=== PATIENT | male | born 1950 | race Caucasian/White ===

== ENCOUNTER 2016-09-04 05:41 | Inpatient (IN) ==
[2016-09-04] MEDS ORDERED: *HR* LORazepam 2 MG/ML VIAL IVP ONE ×2 (05:48→06:18)
[2016-09-04] MEDS ORDERED: *HR* LORazepam 2 MG/ML VIAL ONE (05:51)
[2016-09-04] MEDS ORDERED: methylPREDNISolone 125 MG/2 ML VIAL IVP ONE (05:51)
[2016-09-04] MEDS ORDERED: Ipratropium/Albuterol Neb 3 ML IH ONE (05:51)
--- NOTE | 2016-09-04 06:06 | Emergency Department Note ---
Disposition Clinical Impression: Acute exacerbation of chronic obstructive airways disease, Hypoxia Disposition: Still a Patient Condition: Fair [facility] Care Provider[facility] - Forms: ED Satisfaction Letter Time of Disposition: 06:57 SOB HPI - General Chief Complaint: ED Shortness of Breath/Dyspnea Stated Complaint: YURI Time Seen by Provider: 09/04/16 05:58 Source: EMS Limitations: no limitations Nursing Notes Reviewed: Yes Vital Signs Reviewed: Yes - History of Present Illness 65 year old male with HX of COPD and has increased oxygen requirments nightly of 3LNC. Patinet states he had left sided chest pain that woke up him from sleep and is constant. Upon ems arrival he was 77% on RA. Patinet states that he has a long standing history fo smoking and has a nonproductive cough. PAtient denies fevers, nausea, vomiting. Patient is diaphoretic at bedside. Patinet states he is dyspneic and it has been getting worse over the past few days and appaers increasingly more anxious. Patient does not have a recen hospital admission. States that his chest pain is sharp without radiation. noting makes it wore or better. - Related Data Home Medications Medication Instructions Recorded Confirmed Albuterol Neb [AccuNeb] 1 aerosol IH QID PRN 07/29/15 07/29/15 Amlodipine Besylate [Amlodipine 10 mg PO DAILY 07/29/15 07/29/15 Besylate] Budesonide/Formoterol 160/4.5 2 puff IH BID 07/29/15 07/29/15 [Symbicort 160/4.5] Gabapentin [Gralise] 1,200 mg PO TID 07/29/15 07/29/15 GuaiFENesin ER [Mucinex] 600 mg PO BID PRN 07/29/15 07/29/15 Losartan Potassium [Cozaar] 100 mg PO DAILY 07/29/15 07/29/15 Metoprolol [Lopressor] 25 mg PO BID 07/29/15 07/29/15 Omeprazole [PriLOSEC] 20 mg PO DAILY 07/29/15 07/29/15 Oxycodone HCl/Acetaminophen 1 tab PO TID PRN 07/29/15 07/29/15 [Percocet 10-325 mg Tablet] Tiotropium [Spiriva] 18 mcg IH DAILY 07/29/15 07/29/15 Allergies Allergy/AdvReac Type Severity Reaction Status Date / Time No Known Allergies Allergy Verified 11/26/15 01:05 Constitutional: Reports: weakness. Denies: fever, chills, weight change Eyes: Denies: eye pain, eye discharge, vision change ENT ED: Denies: ear pain, throat pain, dental pain, hearing loss, epistaxis, congestion, dysphagia Cardiovascular: Reports: chest pain, palpitations, dyspnea on exertion. Denies : edema, syncope Respiratory: Reports: cough, dyspnea, wheezes. Denies: hemoptysis, stridor Gastrointestinal: Denies: abdominal pain, nausea, vomiting, diarrhea, constipation, hematemesis, melena, hematochezia Genitourinary: Denies: urgency, dysuria, frequency, hematuria Musculoskeletal: Denies: back pain, neck pain, arthralgia, myalgia Integumentary: Denies: rash, abrasion, lesions Neurological: Denies: headache, weakness, numbness, paresthesias, confusion, abnormal gait, vertigo Psychiatric: Denies: anxiety, depression, suicidal thoughts, homicidal thoughts , auditory hallucinations, visual hallucinations Endocrine: Denies: fatigue Hematological/Lymphatic: Denies: easy bleeding, easy bruising Allergic/Immunologic: Denies: facial swelling, urticaria Past Medical History - Past Medical History Medical history: Reports: COPD, hyperlipidemia, hypertension Psychiatric history: Reports: no psych history - Social History Smoking Status: Former smoker Smokeless Tobacco Status: No (quit smoking September 2014) Alcohol use: Reports: rarely Drug use: Reports: none Physical Exam - General Limitations: no limitations General appearance: alert, anxious, in distress - Head Head exam: atraumatic, normocephalic, normal inspection - Eye Eye exam: Present: normal appearance, PERRL, EOMI - Expanded Eye Exam Pupils: Left: reactive - ENT ENT exam: normal exam, normal oropharynx, mucous membranes moist - Expanded ENT Exam External ear exam: Present: normal external inspection Mouth exam: Present: normal external inspection Teeth exam: Present: normal inspection Throat exam: Present: normal inspection - Neck Neck exam: Present: normal inspection, full ROM, trachea midline - Chest Chest inspection: Present: normal inspection, symmetric chest wall rise - Respiratory Respiratory exam: Present: respiratory distress, wheezes - Cardiovascular Cardiovascular exam: Present: normal rhythm, tachycardia, normal heart sounds - Abdominal Exam Abdominal exam: Present: soft, Non-Tender. Absent: tenderness, distention, guarding, rebound, rigidity - Extremities Exam Extremities exam: Present: normal inspection, full ROM. Absent: tenderness, pedal edema - Expanded Upper Extremity Exam Shoulder exam: Present: normal inspection, full ROM Arm exam: Present: normal inspection, full ROM Elbow exam: Present: normal inspection, full ROM Forearm/Wrist exam: Present: normal inspection, full ROM Hand exam: Present: normal inspection, full ROM Vascular exam: Normal: capillary refill, radial pulse - Expanded Lower Extremity Exam Hip/Pelvis exam: Present: normal inspection, full ROM Upper leg exam: Present: normal inspection, full ROM Knee exam: Present: normal inspection, full ROM Lower leg exam: Present: normal inspection, full ROM Ankle exam: Present: normal inspection, full ROM Foot/toe exam: Present: normal inspection, full ROM Neurovascular/Tendon exam: Absent: motor deficit, sensory deficit, tendon deficit - Back Exam Back exam: Present: normal inspection, full ROM. Absent: tenderness - Neurological Exam Neurological exam: Present: alert, oriented X3 - Expanded Neurological Exam Patient oriented to: Present: person, place, time Coma Scale Eye Opening: Spontaneous Coma Scale Motor Response: Obeys Commands Coma Scale Verbal Response: Oriented Coma Scale Total: 15 - Psychiatric Psychiatric exam: Present: normal affect, normal mood - Skin Skin exam: Present: warm, dry, intact, normal color Course Course Narrative: we will place patinet on bipap with breathing treatments and rule out pnuemonia. - Reevaluation(s) Reevaluation #1: signed patient out to Dr. quintero and see. Plan is to r/o PE with CTA chest. If neg study he will still need to be admitted for acute resp failure, hypoxia, COPD excerbation. Time: 06:56 Vital Signs Temperature 97.7 F 09/04/16 05:45 Pulse Rate 135 09/04/16 05:45 Respiratory Rate 30 09/04/16 05:45 Blood Pressure 121/78 09/04/16 05:45 O2 Sat by Pulse Oximetry 85 09/04/16 05:45 Temperature 97.7 F 09/04/16 05:52 Pulse Rate 137 09/04/16 06:50 Respiratory Rate 37 09/04/16 06:50 Blood Pressure 110/78 09/04/16 06:50 O2 Sat by Pulse Oximetry 96 09/04/16 06:50 Oxygen Delivery Oxygen Delivery Bipap Shortness of Breath/Dyspnea - Lab Data Result diagrams: 09/04/16 06:17 Lab Results 09/04/16 09/04/16 Range/Units 06:17 06:17 WBC 7.4 (4.3-11.1) K/mcL RBC 5.85 H (4.19-5.50) M/mcL Hgb 17.7 H (12.9-16.9) g/dL Hct 52.1 H (37.5-50.1) % MCV 89.1 (83.0-100.0) fL MCH 30.3 (28.0-33.3) pg MCHC 34.0 (31.6-35.5) g/dL RDW 14.2 (11.5-14.5) % Plt Count 368 (140-400) K/mcL MPV 9.4 (9.4-12.4) fL Immature Gran % 0.3 (0-4) % Seg Neutrophils % 89.0 % Lymphocytes % 7.1 % Monocytes % 2.9 % Eosinophils % 0.3 % Basophils % 0.4 % Neutrophils # 6.6 (1.6-8.9) K/mcL Lymphocytes # 0.5 L (0.6-4.6) K/mcL Monocytes # 0.2 (0.0-1.3) K/mcL Eosinophils # 0.0 (0.0-0.6) K/mcL Basophils # 0.0 (0.0-0.2) K/mcL PT 9.5 (9.4-12.1) Seconds INR 0.9 APTT 29.7 (26.0-36.0) Seconds - EKG Data EKG attestation: Yes I reviewed and interpreted this EKG. EKG results narrative: sinus tachycardia with rate of 133. NO STEMI. St depression in leads VV4-6, appears to be rate dependent which has changed from 11/26/15. [id number]
[2016-09-04 06:30] LABS: Basophils % 0.4 %; Eosinophils % 0.3 %; Hematocrit 52.1 % (37.5-50.1); Hemoglobin 17.7 g/dL (12.9-16.9); Immature Granulocytes % 0.3 % (0-4); Lymphocytes # 0.5 K/mcL (0.6-4.6); Lymphocytes % 7.1 %; Mean Corpuscular Hemoglobin 30.3 pg (28.0-33.3); Mean Corpuscular Volume 89.1 fL (83.0-100.0); Mean Platelet Volume 9.4 fL (9.4-12.4); Monocytes # 0.2 K/mcL (0.0-1.3); Monocytes % 2.9 %; Neutrophils # 6.6 K/mcL (1.6-8.9); Platelet Count 368 K/mcL (140-400); Red Blood Count 5.85 M/mcL (4.19-5.50); Red Cell Distribution Width 14.2 % (11.5-14.5)
[2016-09-04 06:39] LABS: INR 0.9; Prothrombin Time 9.5 Seconds (9.4-12.1)
[2016-09-04 06:41] LABS: Activated Partial Thrombo Time 29.7 Seconds (26.0-36.0)
[2016-09-04] MEDS: Levofloxacin 750 MG/150 ML 750 MG/150 ML BAG IVPB SCH ×2 (07:01→13:25)
[2016-09-04] MEDS ORDERED: *HR* FentaNYL (PF) 100 MCG/2 ML VIAL IV ONE (07:19)
[2016-09-04 07:40] LABS: Alanine Aminotransferase 17 Units/L (0-55); Albumin 4.4 g/dL (3.5-5.0); Albumin/Globulin Ratio 1.1 (1.1-2.2); Alkaline Phosphatase 98 Units/L (38-126); Aspartate Amino Transferase 34 Units/L (5-34); BUN/Creatinine Ratio 9 (6-26); Bilirubin,Direct 0.4 mg/dL (0.0-0.5); Bilirubin,Indirect 0.6 mg/dL (0.0-1.2); Blood Urea Nitrogen 9 mg/dL (8-26); Carbon Dioxide 20 mEq/L (19-29); Chloride 91 mEq/L (98-109); Glucose 52 mg/dL (70-99); Lipase 9 Units/L (8-78); Osmolality,Calculated 266 (280-300); Potassium 4.2 mEq/L (3.5-4.5); Sodium 130 mEq/L (136-145); Total Protein 8.4 g/dL (6.0-8.3); eGFR For African Americans > 60 (> 60); eGFR For Non-African Americans > 60 (> 60)
--- NOTE | 2016-09-04 07:44 | Emergency Department Note ---
Disposition Clinical Impression: Acute exacerbation of chronic obstructive airways disease, Hypoxia, Cavitary lesion of lung Pneumonia Qualifiers: Pneumonia type: due to unspecified organism Laterality: right Lung location: unspecified part of lung Qualified Code(s): J18.9 - Pneumonia, unspecified organism Disposition: Admitted As Inpatient Condition: Fair [facility]Primary Care Provider[facility] - Forms: ED Satisfaction Letter SOB HPI - General Chief Complaint: ED Shortness of Breath/Dyspnea Stated Complaint: YURI Source: EMS Limitations: no limitations Nursing Notes Reviewed: Yes Vital Signs Reviewed: Yes - History of Present Illness Patient seen and examined. This is a continuation of prior providers care. Please refer to the prior providers documentation for complete history and physical. - Related Data Home Medications Medication Instructions Recorded Confirmed Albuterol Neb [AccuNeb] 1 aerosol IH QID PRN 07/29/15 09/04/16 Amlodipine Besylate [Amlodipine 10 mg PO DAILY 07/29/15 09/04/16 Besylate] Budesonide/Formoterol 160/4.5 2 puff IH BID 07/29/15 09/04/16 [Symbicort 160/4.5] Gabapentin [Gralise] 1,200 mg PO TID 07/29/15 09/04/16 GuaiFENesin ER [Mucinex] 600 mg PO BID PRN 07/29/15 09/04/16 Losartan Potassium [Cozaar] 100 mg PO DAILY 07/29/15 09/04/16 Omeprazole [PriLOSEC] 20 mg PO DAILY 07/29/15 09/04/16 Oxycodone HCl/Acetaminophen 1 tab PO TID PRN 07/29/15 09/04/16 [Percocet 10-325 mg Tablet] Tiotropium [Spiriva] 1 cap IH DAILY 07/29/15 09/04/16 Albuterol Sulfate [Albuterol 2 puff IH Q6HR PRN 09/04/16 09/04/16 Inhaler] Roflumilast [Daliresp] 500 mcg PO DAILY 09/04/16 09/04/16 Tamsulosin [Flomax] 0.4 mg PO DAILY 09/04/16 09/04/16 Allergies Allergy/AdvReac Type Severity Reaction Status Date / Time No Known Allergies Allergy Verified 11/26/15 01:05 Constitutional: Reports: weakness. Denies: fever, chills, weight change Eyes: Denies: eye pain, eye discharge, vision change ENT ED: Denies: ear pain, throat pain, dental pain, hearing loss, epistaxis, congestion, dysphagia Cardiovascular: Reports: chest pain, palpitations, dyspnea on exertion. Denies : edema, syncope Respiratory: Reports: cough, dyspnea, wheezes. Denies: hemoptysis, stridor Gastrointestinal: Denies: abdominal pain, nausea, vomiting, diarrhea, constipation, hematemesis, melena, hematochezia Genitourinary: Denies: urgency, dysuria, frequency, hematuria Musculoskeletal: Denies: back pain, neck pain, arthralgia, myalgia Integumentary: Denies: rash, abrasion, lesions Neurological: Denies: headache, weakness, numbness, paresthesias, confusion, abnormal gait, vertigo Psychiatric: Denies: anxiety, depression, suicidal thoughts, homicidal thoughts , auditory hallucinations, visual hallucinations Endocrine: Denies: fatigue Hematological/Lymphatic: Denies: easy bleeding, easy bruising Allergic/Immunologic: Denies: facial swelling, urticaria Past Medical History - Past Medical History Medical history: Reports: COPD, hyperlipidemia, hypertension Psychiatric history: Reports: no psych history - Social History Smoking Status: Former smoker Smokeless Tobacco Status: No (quit smoking September 2014) Alcohol use: Reports: rarely Drug use: Reports: none Physical Exam - General Limitations: no limitations General appearance: alert, in no apparent distress, anxious - Head Head exam: normocephalic - Eye Eye exam: Present: normal appearance, EOMI - ENT ENT exam: normal exam, mucous membranes moist - Neck Neck exam: Present: normal inspection, trachea midline - Chest Chest inspection: Present: normal inspection, symmetric chest wall rise - Respiratory Respiratory exam: Present: wheezes, accessory muscle use, prolonged expiratory phase - Cardiovascular Cardiovascular exam: Present: normal rhythm, tachycardia - Abdominal Exam Abdominal exam: Present: soft, Non-Tender - Extremities Exam Extremities exam: Present: normal inspection. Absent: pedal edema - Neurological Exam Neurological exam: Present: alert, oriented X3 - Skin Skin exam: Present: warm, dry, intact, normal color Course Course Narrative: Patient seen and examined upon arrival. This a continuation of parvovirus care. Please see their documentation for complete history and physical. Patient is 65-year-old male with stage IV COPD presents for evaluation of shortness of breath dyspnea and increasing nausea vomiting overnight. It sounds productive cough and no fevers. Patient states that he was admitted in [facility] for [facility]. - Reevaluation(s) Reevaluation #1: Seen and examined. Patient confirms the history provided. Reports breathing has drastically improved with the addition of Positive pressure. Awaiting CTA. Time: 07:50 Vital Signs Temperature 97.7 F 09/04/16 05:45 Pulse Rate 135 09/04/16 05:45 Respiratory Rate 30 09/04/16 05:45 Blood Pressure 121/78 09/04/16 05:45 O2 Sat by Pulse Oximetry 85 09/04/16 05:45 Temperature 97.7 F 09/04/16 05:52 Pulse Rate 102 09/04/16 09:26 Respiratory Rate 20 09/04/16 09:26 Blood Pressure 129/76 09/04/16 09:26 O2 Sat by Pulse Oximetry 94 09/04/16 09:26 Oxygen Delivery Oxygen Delivery Venti Mask Shortness of Breath/Dyspnea - [facility] Narrative Medical decision making narrative: 65-year-old male presents for evaluation of shortness of breath. Patient had increasing shortness of breath overnight. Patient is typically on 3 L nasal cannula. Patient is found to be hypoxic upon arrival. Patient was also found to be tachycardic into kidney. Patient was placed on BiPAP which significantly improved his respiratory status. Patient also received IV fluid hydrations as his heart rate did respond. Patient's chest x-ray was suggestive of pneumonia. Since the patient was persistently tachycardic and hypoxic he received a CTA which shows a cavitary lesion in the right apex. Patient denies any history of TB. Patient denies any risk factors for TB. No night sweats. No immunocompromised state. No times of prolonged incarceration. Patient received antibiotics in the emergency department. Patient will be admitted to the hospital service for further evaluation and monitoring. - Lab Data Lab results reviewed: Yes I reviewed the patient's lab results. Result diagrams: 09/04/16 06:17 09/04/16 06:17 Lab Results 09/04/16 09/04/16 09/04/16 Range/Units 06:17 06:17 06:17 WBC 7.4 (4.3-11.1) K/mcL RBC 5.85 H (4.19-5.50) M/mcL Hgb 17.7 H (12.9-16.9) g/dL Hct 52.1 H (37.5-50.1) % MCV 89.1 (83.0-100.0) fL MCH 30.3 (28.0-33.3) pg MCHC 34.0 (31.6-35.5) g/dL RDW 14.2 (11.5-14.5) % Plt Count 368 (140-400) K/mcL MPV 9.4 (9.4-12.4) fL Immature Gran % 0.3 (0-4) % Seg Neutrophils % 89.0 % Lymphocytes % 7.1 % Monocytes % 2.9 % Eosinophils % 0.3 % Basophils % 0.4 % Neutrophils # 6.6 (1.6-8.9) K/mcL Lymphocytes # 0.5 L (0.6-4.6) K/mcL Monocytes # 0.2 (0.0-1.3) K/mcL Eosinophils # 0.0 (0.0-0.6) K/mcL Basophils # 0.0 (0.0-0.2) K/mcL PT 9.5 (9.4-12.1) Seconds INR 0.9 APTT 29.7 (26.0-36.0) Seconds ABG pH (7.32-7.45) pH Units ABG pCO2 (35-45) mmHg ABG pO2 (85-104) mmHg ABG HCO3 (21-27) mEQ/L ABG Total CO2 (20-26) mEq/L ABG O2 Saturation (95-98) % ABG Base Excess (-2.0 to 3.0) mEq/L Blood Gas Modality Inspired O2 % Sodium (136-145) mEq/L Potassium (3.5-4.5) mEq/L Chloride (98-109) mEq/L Carbon Dioxide (19-29) mEq/L BUN (8-26) mg/dL Creatinine (0.72-1.25) mg/dL Est GFR ( Amer) (> 60) Est GFR (Non-Af Amer) (> 60) BUN/Creatinine Ratio (6-26) Glucose (70-99) mg/dL Calculated Osmolality (280-300) Calcium (8.6-10.8) mg/dL Total Bilirubin (0.2-1.2) mg/dL Direct Bilirubin (0.0-0.5) mg/dL Indirect Bilirubin (0.0-1.2) mg/dL AST (5-34) Units/L ALT (0-55) Units/L Alkaline Phosphatase (38-126) Units/L Troponin I (0-0.03) ng/mL B-Natriuretic Peptide 45 (0-100) pg/mL Serum Total Protein (6.0-8.3) g/dL Albumin (3.5-5.0) g/dL Globulin (2.4-3.5) g/dL Albumin/Globulin Ratio (1.1-2.2) Lipase (8-78) Units/L 09/04/16 09/04/16 09/04/16 Range/Units 06:17 06:17 07:58 WBC (4.3-11.1) K/mcL RBC (4.19-5.50) M/mcL Hgb (12.9-16.9) g/dL Hct (37.5-50.1) % MCV (83.0-100.0) fL MCH (28.0-33.3) pg MCHC (31.6-35.5) g/dL RDW (11.5-14.5) % Plt Count (140-400) K/mcL MPV (9.4-12.4) fL Immature Gran % (0-4) % Seg Neutrophils % % Lymphocytes % % Monocytes % % Eosinophils % % Basophils % % Neutrophils # (1.6-8.9) K/mcL Lymphocytes # (0.6-4.6) K/mcL Monocytes # (0.0-1.3) K/mcL Eosinophils # (0.0-0.6) K/mcL Basophils # (0.0-0.2) K/mcL PT (9.4-12.1) Seconds INR APTT (26.0-36.0) Seconds ABG pH 7.38 (7.32-7.45) pH Units ABG pCO2 37 (35-45) mmHg ABG pO2 85 (85-104) mmHg ABG HCO3 21.9 (21-27) mEQ/L ABG Total CO2 23.0 (20-26) mEq/L ABG O2 Saturation 96 (95-98) % ABG Base Excess -2.7 L (-2.0 to 3.0) mEq/L Blood Gas Modality BIPAP Inspired O2 60 % Sodium 130 L (136-145) mEq/L Potassium 4.2 (3.5-4.5) mEq/L Chloride 91 L (98-109) mEq/L Carbon Dioxide 20 (19-29) mEq/L BUN 9 (8-26) mg/dL Creatinine 0.95 (0.72-1.25) mg/dL Est GFR ( Amer) > 60 (> 60) Est GFR (Non-Af Amer) > 60 (> 60) BUN/Creatinine Ratio 9 (6-26) Glucose 52 L (70-99) mg/dL Calculated Osmolality 266 L (280-300) Calcium 10.0 (8.6-10.8) mg/dL Total Bilirubin 1.0 (0.2-1.2) mg/dL Direct Bilirubin 0.4 (0.0-0.5) mg/dL Indirect Bilirubin 0.6 (0.0-1.2) mg/dL AST 34 (5-34) Units/L ALT 17 (0-55) Units/L Alkaline Phosphatase 98 (38-126) Units/L Troponin I 0.01 (0-0.03) ng/mL B-Natriuretic Peptide (0-100) pg/mL Serum Total Protein 8.4 H (6.0-8.3) g/dL Albumin 4.4 (3.5-5.0) g/dL Globulin 4.0 H (2.4-3.5) g/dL Albumin/Globulin Ratio 1.1 (1.1-2.2) Lipase 9 (8-78) Units/L - Radiology Data Radiology results reviewed: Yes I reviewed the patient's radiology results. Chest X-Ray 09/04/16 05:48 IMPRESSION: Asymmetric airspace disease on the right with right-sided pleural effusion, suspicious for pneumonia D/ / Phill Elder MD / Phill Elder MD Interpreting Provider: Phill Elder MD Chest CTA 09/04/16 06:52 IMPRESSION: 1. No acute pulmonary artery embolism. 2. Emphysema with 10.6 x 8.8 cm cavitary lesion within the right apex concerning for postinfectious origin such as tuberculosis. 3. Multifocal consolidation right upper lobe, right middle lobe and right lower lobe with small fusion consistent with multifocal infection. 4. Indeterminate cavitary nodules within the lingula and left lower lobe. Attention on follow-up CT imaging recommended. D/ / Wilber Duron MD / Wilber Duron MD Interpreting Provider: Wilber Duron MD - EKG Data EKG attestation: Yes I reviewed and interpreted this EKG. EKG shows normal: Reports: sinus rhythm Rate: Reports: tachycardia Rhythm: Reports: NSR [place]/QRS: Reports: normal ( ) When compared to previous EKG there are: no significant changes Interpretation: Reports: no acute changes, nonspecific ST-T wave changes S.B.A.R. - S.B.A.RJavier Situation: Demographics, MOA Background: Presenting Complaint, Relevant PMH, Meds, & Allergies Assessment: Vital Signs, Course and respsone to treatment, Patient/Family Expectation, Pertinant Lab Results Recommendation: Barrier(s) to disposition, Recommendation based on pending studies, treatments, or consults S.B.A.RJavier Report Given to: Dr. Liz Avila Repor Time: 09:12 Attestation Statement - Attestation Attestation: I examined this patient and my medical decision-making was reviewed with the COMMERCIAL ENERGY AUDITOR/PA/Advanced Practice Nurse/Resident Physician. I agree with the documented findings, disposition and treatment plan as described except to the extent set forth below. Patient signed out pending reevaluation and admission. Patient is tolerating nasal cannula at this time. CT shows right-sided infiltrate. Possible cavitary lesion that could be consistent with TB. She questioned and has no risk factors for TB. IV antibotics given and admitted to medicine. 30 Minutes of critical care exclusive of separately billable procedures.
[2016-09-04] MEDS ORDERED: 0.9 % Sodium Chloride 1,000 ML IVC ONE ×2 (07:59→09:21)
[2016-09-04 08:07] LABS: ABG Base Excess -2.7 mEq/L (-2.0 to 3.0); ABG HCO3 21.9 mEQ/L (21-27); ABG Oxygen Saturation 96 % (95-98); ABG PCO2 37 mmHg (35-45); ABG PH 7.38 pH Units (7.32-7.45); ABG PO2 85 mmHg (85-104)
[2016-09-04 08:08] LABS: Blood Gas FiO2 60 %
[2016-09-04] MEDS ORDERED: Naloxone 0.4 MG/ML INJ IVP PRN (10:01)
[2016-09-04] MEDS ORDERED: Acetaminophen 325 MG TABLET PO PRN (10:01)
[2016-09-04] MEDS ORDERED: *HR* FentaNYL (PF) 100 MCG/2 ML VIAL IVP ONE (10:11)
--- NOTE | 2016-09-04 10:59 | Internal Med History&Physical ---
Date of Encounter: 09/04/16 Time of Encounter: 10:57 Assessment and Plan (1) Acute and chronic respiratory failure with hypoxia Current visit: Yes Status: Acute presented with worsening SOB that started morning of admission. Was hypoxic in ED with saturations in 70s. Initially required BiPAP. CTA chest with multifocal infection, no pulmonary embolism. Saturations and breathing improved with BiPAP , weaned to non-rebreather. Treat underlying cause. Wean O2 as able. ABGs pending (2) Acute exacerbation of chronic obstructive airways disease Current visit: Yes Status: Acute per hx. Wears O2 at HS. Now with worsening SOB, wheezing. Cont IV steroids, ATB , nebulizers. (3) Pneumonia Current visit: Yes Status: Acute symptomatic with acute SOB and cough. Chest CTA with right upper lobe, right middle lobe and right lower lobe consolidation concerning for multifocal infection. Cont Levaquin stared in ED. ID consulted. Sputum cx, urinary antigens pending Qualifiers: Pneumonia type: due to unspecified organism Laterality: right Lung location: lower lobe of lung Qualified Code(s): J18.1 - Lobar pneumonia, unspecified organism (4) Cavitary lesion of lung Current visit: Yes Status: Acute Chest CTA with right apex cavitary lesion concerning for possible tuberculosis and indeterminate cavitary nodules within lingula and left lower lobe. Pt reports following with [facility] for lesion. No previous hx TB, no night sweets, fever, weight loss. ID consulted for further recommendations (5) Hypertension Current visit: Yes Status: Acute per hx. Was initially hypotensive in ED. BP responded to IV fluids. Monitor BP and resume home BP medications as BP allows Qualifiers: Hypertension type: essential hypertension Qualified Code(s): I10 - Essential (primary) hypertension (6) Hypoglycemia Current visit: Yes Status: Acute blood sugar 54 on arrival. No hx diabetes. Asymptomatic. Give PO, monitor blood sugar (7) DVT prophylaxis Current visit: Yes Status: Acute [facility] Internal Medicine - H&P: HPI Chief complaint: Shortness of breath Admitted From: Home Plans for Post Hospital Care: Home History of present illness: Mr. Teran is a 65 year old male with PMH COPD, HTN and BPH who presented to [facility] on 09/04/2016 with complaints of shortness of breath. He was found to be hypoxic and was placed on BiPAP in ED. He was admitted for IV ATB and ID consultation. Information obtained form chart review and patient report. Patient says he woke at 0200 on morning of admission and was acutely SOB. Says "when I get like this it just comes on real quick". Says he mowed his yard for 4 hours yesterday and he thinks that set it off. Has been treated for PNA and COPD exacerbation this year at [facility]. On my exam he is still c/ o SOB but says better from when he first came to ER. Breathing tx's and oxygen has helped, activity worsens. No chest pain. Reports productive cough at times. No recent weight loss, fever, chills or night sweats. Past Med Surg Social Fam HX - Past Medical History Medical history: COPD, hyperlipidemia Psychiatric history: no psych history - Past Surgical History Surgical History: no surgical history - Social History Smoking Status: Former smoker Smokeless Tobacco Status: No (quit smoking September 2014) Alcohol use: rarely Drug use: none - Additional Family History Additional family history: reviewed and noncontributory per patient Internal Medicine - H&P: Meds Albuterol Neb [AccuNeb] 1 aerosol IH QID PRN 07/29/15 [History] Amlodipine Besylate [Amlodipine Besylate] 10 mg PO DAILY 07/29/15 [History] Budesonide/Formoterol 160/4.5 [Symbicort 160/4.5] 2 puff IH BID 07/29/15 [ History] Gabapentin [Gralise] 1,200 mg PO TID 07/29/15 [History] GuaiFENesin ER [Mucinex] 600 mg PO BID PRN 07/29/15 [History] Losartan Potassium [Cozaar] 100 mg PO DAILY 07/29/15 [History] Omeprazole [PriLOSEC] 20 mg PO DAILY 07/29/15 [History] Oxycodone HCl/Acetaminophen [Percocet 10-325 mg Tablet] 1 tab PO TID PRN [History] Tiotropium [Spiriva] 1 cap IH DAILY 07/29/15 [History] Albuterol Sulfate [Albuterol Inhaler] 2 puff IH Q6HR PRN 09/04/16 [History] Roflumilast [Daliresp] 500 mcg PO DAILY 09/04/16 [History] Tamsulosin [Flomax] 0.4 mg PO DAILY 09/04/16 [History] Allergies No Known Allergies Allergy (Verified 11/26/15 01:05) All Systems PM: A 10-system review of systems was performed and is negative for pertinent findings except as documented above in the HPI. - Constitutional Constitutional: no chills, no fever(s), no night sweats - EENT Eyes: no change in vision, no discharge, no pain, no photophobia Nose, mouth and throat: no dysphagia, no nasal discharge, no neck pain, no sore throat - Cardiovascular Cardiovascular ROS IM: dyspnea, dyspnea on exertion, orthopnea, no chest pain, no diaphoresis, no lightheadedness, no palpitations, no syncope - Respiratory Respiratory: cough, dyspnea, wheezing, no excessive phlegm production - Gastrointestinal Gastrointestinal: no abdominal pain, no diarrhea, no hematemesis, no hematochezia, no melena, no nausea, no vomiting - Musculoskeletal Musculoskeletal ROS IM: no numbness, no tingling - Integumentary Integumentary IM: no rash, no unusual bruising - Neurological Neurological ROS: no confusion, no convulsions, no focal weakness, no numbness, no tingling, no tremor(s) - Psychiatric Psychiatric: no abnormal sleep pattern, no confusion, no difficulty concentrating - Endocrine Endocrine IM: no fatigue - Hematologic/Lymphatic Hematologic/Lymphatic: no easy bruising - Constitutional Vitals: Temp Pulse Resp BP Pulse Ox 97.7 F 98 22 127/75 92 09/04/16 05:52 09/04/16 10:41 09/04/16 10:49 09/04/16 10:49 09/04/16 10:41 General appearance: Present: cooperative, mild distress, A&O X 3 - Head Head exam: Present: atraumatic, normocephalic - Eye Eye exam: Present: PERRL, conjuntiva pink, sclera anicteric Pupils: Present: PERRL - Neck Neck exam general surgery: Present: supple, trachea midline. Absent: lymphadenopathy - Respiratory Respiratory exam: Present: accessory muscle use, decreased breath sounds, CTAB, wheezes. Absent: rales, rhonchi - Cardiovascular Cardiovascular exam: Present: irregular rhythm, RRR, +S2. Absent: diastolic murmur, gallop, rubs, systolic murmur - GI/Abdominal GI/Abdominal exam: Present: normal bowel sounds, soft, no peritoneal signs. Absent: distended, tenderness - Extremities Exam Extremities exam: Present: warm, radial pulses palpable and symetrical. Absent : calf tenderness, cyanotic, pedal edema - Neurological Exam Neurological exam: Present: CN II-XII intact, oriented X3, no focal deficits. Absent: pronater drift, facial droop, speech deficit - Skin Skin exam: Present: dry, intact Internal Med - H&P Results - Labs CBC & Chem 7: 09/04/16 06:17 09/04/16 06:17 - Impressions Impressions Chest X-Ray 09/04/16 05:48 IMPRESSION: Asymmetric airspace disease on the right with right-sided pleural effusion, suspicious for pneumonia D/ / Phill Elder MD / Phill Elder MD Interpreting Provider: Phill Elder MD Chest CTA 09/04/16 06:52 IMPRESSION: 1. No acute pulmonary artery embolism. 2. Emphysema with 10.6 x 8.8 cm cavitary lesion within the right apex concerning for postinfectious origin such as tuberculosis. 3. Multifocal consolidation right upper lobe, right middle lobe and right lower lobe with small effusion consistent with multifocal infection. 4. Indeterminate cavitary nodules within the lingula and left lower lobe. Attention on follow-up CT imaging recommended. D/ / 09/04/2016 09:09:17 Wilber Duron MD / ana Interpreting Provider: Wilber Duron MD
[2016-09-04] MEDS ORDERED: D5% in Water 1,000 ML IVC PRN (11:47)
[2016-09-04] MEDS ORDERED: Dextrose Gel 15 GM PO PRN ×2 (11:47)
[2016-09-04] MEDS ORDERED: *HR* Dextrose 50 % in Water (Syg) 50 ML SYRINGE IVP PRN (11:47)
[2016-09-04] MEDS ORDERED: Ipratropium/Albuterol Neb 3 ML IH PRN (13:06)
[2016-09-04] MEDS: NON-FORMULARY MEDICATION 1 EACH EACH (Roflumilast [Daliresp] 500 MCG) PO SCH (13:41)
[2016-09-04] MEDS: Ipratropium/Albuterol Neb 3 ML IH SCH ×3 (13:46→19:51)
[2016-09-04] MEDS: Gabapentin 400 MG CAPSULE PO SCH ×3 (13:49→20:59)
--- NOTE | 2016-09-04 14:08 | Infectious Disease Consult ---
Date of Encounter: 09/04/16 Time of Encounter: 14:06 Assessment and Plan (1) Sepsis Status: Acute Assessment and plan: Severe sepsis: The patient had three SIRS criteria plus hypotension that responded to IV fluids. qSOFA score 2. Lactic acid normal. IV fluid bolus administered per the ED. Likely secondary to PNA. Blood cultures drawn in the ED are pending x 2 sets. Qualifiers: Sepsis type: sepsis due to unspecified organism Qualified Code(s): A41.9 - Sepsis, unspecified organism (2) Pneumonia Status: Acute Assessment and plan: Community-acquired PNA Location: Right lung. CT of the chest completed in the ED showed consolidation and ground-glass opacities in the right upper and right middle lobe and extensively throughout the right lower lobe with more confluent airspace disease and air bronchograms consistent with multifocal infection. Causative organism unclear. Send sputum for culture. Check S. pneumo and Legionella UAT. Discontinue Levaquin. Start Zosyn 3.375 grams IV Q8H. This will provide adequate coverage for both CAP and in the even the cavitary lung lesion is caused by a bacterial infection. Start Vancomycin IV. Pharmacy to dose. Goal trough approximately 15. Duration of treatment depends on the clinical picture. Monitor renal function and for drug toxicity and dose-adjust antibiotics. Qualifiers: Pneumonia type: due to unspecified organism Laterality: right Lung location: lower lobe of lung Qualified Code(s): J18.1 - Lobar pneumonia, unspecified organism (3) Cavitary lesion of lung Status: Acute Assessment and plan: Location: Right lung apex. CT of the chest shows 10.6cm x 8.8cm cavitary lesion within the right apex concerning for postinfectious origin such as tuberculosis. Etiology not entirely clear. We need to consider infectious (bacterial, TB, NTM , fungal) vs. noninfectious etiologies (malignancy, autoimmune, etc.) CTA of the chest ruled out a PE as a potential cause. Place PPD for TST. Read in [address] the patient in negative pressure isolation until TB has been ruled out. Send sputum for culture x 1 and AFB x 3. Consider sending fungal serologies. Recommend pulmonology consult as well. Request records from the [place]. I have placed a phone call to the nurse practitioner that the patient sees at the [facility]. Awaiting a return call at this time. Antibiotic recommendations as above. Discontinue Levaquin as its use in the TB patient can lead to resistance. (4) Acute exacerbation of chronic obstructive airways disease Status: Acute Assessment and plan: Likely secondary to PNA. Continue supportive care with O2, nebulizers, and steroids. Continue antibiotics as above. Further management per the primary team. (5) Hypoxia Status: Acute Assessment and plan: Secondary to PNA and AECOPD. Continue O2 to keep SpO2 >89%. Management per the primary team. (6) Acute and chronic respiratory failure with hypoxia Status: Acute (7) Pulmonary nodule Status: Acute Assessment and plan: CTA of the chest shows scattered bilateral calcified pulmonary nodules consistent with remote granulomatous disease. Etiology unclear, but the patient states he has been following with the [facility] for this and was told it was "stable." Unable to tell me the cause of the pulmonary nodule. Request records from the [facility]. Recommend pulmonology consult. Infectious Disease HPI - Data of Consult Patient: new to practice Consult date: 09/04/16 Requesting Physician: Whitney Hill MD Primary Care Provider: [facility] - Consult Narrative Reason for consult: Cavitary lung lesion History of present illness: Mr. Teran is a 65 year old male with a past medical history of COPD, hyperlipidemia, and hypertension. The patient was managed the hospital September 04 for acute exacerbation of COPD and hypoxia. We are consulted September 04 for further evaluation and treatment recommendations regarding a cavitary lung lesion. The patient's 65-year-old male with past medical history as stated above. The patient typically follows with [facility] for his healthcare. He states that approximately 2:00 this morning he was awoke from sleep due to severe shortness of breath and cough and chest pain. Upon arrival to ER, the patient is afebrile but he was tachycardic. His white blood cell count is normal. Chest x-ray showed asymmetric airspace disease on the right with a right pleural effusion suspicious for pneumonia. A CTA of the chest was completed that she was negative for PE. It is showing emphysema with a 10.6 x 8.8 cm cavitary lesion in the right apex as well as findings consistent with multifocal pneumonia and cavitary nodules in the lingula and left lower lobe. The patient was started on empiric Levaquin. We've asked to evaluate and make further recommendations. During my exam today, the patient endorses a history as stated below. He states he follows with [facility] and typically sees a nurse practitioner over there has been following with pulmonary nodules. He states he is also seen a international first officer who states that his pulmonary nodules are "stable. " He denies any fevers or chills or rigors. He denies any headache, but does report chronic neck pain. He denies any recent congestion, earache, or sore throat. He reports that the pain in his chest as constant and worse with cough or deep inspiration. He reports a cough productive of thick sputum. He denies any hemoptysis. He denies any night sweats or weight loss. He denies any dizziness or weakness. He states that the shortness of breath and chest pain or sudden onset this morning. He reports dyspnea at rest and worse with exertion. He denies any nausea, vomiting, diarrhea, or constipation. He states his appetite has been okay. He complains of chronic back pain, but denies anything new. He denies pain in any of his extremities. The patient's was previously in the [employer] and served in [employer] He then went to [place]. 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 He denies any recent travel outside the [facility]. He is a former smoker. He denies any illicit drug use and states that he occasionally drinks a beer. CC: Whitney Hill MD Past Med Surg Social Fam HX - Past Medical History Attestation: Yes The following information was validated with the patient. Source: patient, old records reviewed, nursing notes reviewed Medical history: COPD, hyperlipidemia Psychiatric history: no psych history - Past Surgical History Surgical History: orthopedic, other (Right hip IM nailing, right hip total arthroplasty) - Social History Smoking Status: Former smoker Packs per day: 1 Smokeless Tobacco Status: No (quit smoking September 2014) Alcohol use: rarely Drug use: none Occupational status: retired Current living situation: Home, With Family Activity Level: Independent ambulation Recent Out of Country Travel Within the Last 8 Weeks: No Exposure or Possible Exposure to Illness During Travel: No Infectious Disease-CN:Meds Albuterol Neb [AccuNeb] 1 aerosol IH QID PRN 07/29/15 [History] Amlodipine Besylate [Amlodipine Besylate] 10 mg PO DAILY 07/29/15 [History] Budesonide/Formoterol 160/4.5 [Symbicort 160/4.5] 2 puff IH BID 07/29/15 [ History] Gabapentin [Gralise] 1,200 mg PO TID 07/29/15 [History] GuaiFENesin ER [Mucinex] 600 mg PO BID PRN 07/29/15 [History] Losartan Potassium [Cozaar] 100 mg PO DAILY 07/29/15 [History] Omeprazole [PriLOSEC] 20 mg PO DAILY 07/29/15 [History] Oxycodone HCl/Acetaminophen [Percocet 10-325 mg Tablet] 1 tab PO TID PRN [History] Tiotropium [Spiriva] 1 cap IH DAILY 07/29/15 [History] Albuterol Sulfate [Albuterol Inhaler] 2 puff IH Q6HR PRN 09/04/16 [History] Roflumilast [Daliresp] 500 mcg PO DAILY 09/04/16 [History] Tamsulosin [Flomax] 0.4 mg PO DAILY 09/04/16 [History] Allergies No Known Allergies Allergy (Verified 11/26/15 01:05) All systems: reviewed and no additional remarkable complaints except as stated Exam - Constitutional Vitals: Temp Pulse Resp BP Pulse Ox 97.7 F 108 20 148/85 93 09/04/16 11:02 09/04/16 13:30 09/04/16 13:30 09/04/16 13:30 09/04/16 13:30 General appearance: cooperative, no acute distress, thin - Head Head exam: Present: atraumatic, normal inspection, normocephalic - Eye Eye exam: Present: EOMI, normal appearance, PERRL Pupils: Present: normal accommodation - ENT ENT exam: Present: mucous membranes moist - Neck Neck exam: Present: normal inspection - Respiratory Respiratory exam: Present: decreased breath sounds (POLY, LLL), rales (RML, RLL) , respiratory distress (mild), tachypnea. Absent: rhonchi, wheezes - Cardiovascular Cardiovascular exam: Present: +S1, +S2, tachycardia. Absent: irregular rhythm - GI/Abdominal GI/Abdominal exam: Present: normal bowel sounds, soft. Absent: distended, tenderness - Extremities Exam Extremities exam: Present: normal inspection. Absent: joint swelling, pedal edema, tenderness - Neurological Exam Neurological exam: Present: alert, oriented X3, no focal deficits - Psychiatric Psychiatric exam: Present: normal affect, normal mood - Skin Skin exam: Present: dry, intact, normal color, warm Infectious Disease CN: Results - Labs CBC & Chem 7: 09/05/16 04:43 09/05/16 04:43 Consult Discharge Plan - Plan [facility]: [facility]Primary Care Provider] -
[2016-09-04 14:18] LABS: Bilirubin,Urine Negative (Negative); Blood,Urine Negative (Negative); Clarity,Urine Clear (Clear); Color,Urine Yellow (Yellow); Glucose,Urine (UA) Normal (Normal); Ketones,Urine 15 mg/dL (Negative); Leukocyte Esterase,Urine Negative (Negative); Nitrite,Urine Negative (Negative); Protein,Urine Negative (Neg-Trace); Urobilinogen,Urine Normal (Normal)
[2016-09-04] MEDS ORDERED: Tuberculin Skin Test (PPD) 5 TUB/0.1 ML VIAL ID ONE (14:40)
[2016-09-04] MEDS ORDERED: Vancomycin 750 MG in D5% in Water 250 ML IVPB SCH (15:00)
[2016-09-04] MEDS: Piperacillin/Tazobactam 3.375 GM in D5% in Water (Mini-Bag+) 100 ML IVPB SCH (16:26)
[2016-09-04] MEDS: methylPREDNISolone 125 MG/2 ML VIAL IVP SCH (16:27)
[2016-09-04] MEDS: Vancomycin 750 MG in D5% in Water 250 ML IVPB SCH (16:28)
--- NOTE | 2016-09-04 18:40 | Electrocardiograph Report ---
[address] [place], [place] [address] Test Date: 2016-09-04 Pat Name: Ravin Teran Department: 102 Room: 12 Gender: M Excel Analyst: [facility] : 1950 Requested By: Serene Harrell Order Number: [id number] Reading MD: Freddie Leung MD Measurements Intervals [place] Rate: 133 P: 80 PA: 137 QRS: 77 QRSD: 73 T: 70 QT: 270 QTc: 348 Interpretive Statements SINUS TACHYCARDIA Electronically Signed On 09-04-2016 18:38:46 EDT by Freddie Leung MD
[2016-09-04] MEDS: Budesonide/Formoterol 160/4.5 MDI IH SCH (19:51)
[2016-09-04] MEDS: *HR* OxyCODONE/APAP 10/325 TABLET PO PRN (20:59)
[2016-09-04 21:54] LABS: Adenovirus Not Detected (Not Detect); Bordetella Pertussis Not Detected (Not Detect); Chlamydophila pneumoniae Not Detected (Not Detect); Coronavirus 229E Not Detected (Not Detect); Coronavirus HKU1 Not Detected (Not Detect); Coronavirus NL63 Not Detected (Not Detect); Coronavirus OC43 Not Detected (Not Detect); Human Metapneumovirus Not Detected (Not Detect); Human Rhinovirus/Enterovirus Not Detected (Not Detect); Influenza A Subtype 2009 H1 Not Detected (Not Detect); Influenza A Untypeable Not Detected (Not Detect); Influenza B Not Detected (Not Detect); Mycoplasma pneumoniae Not Detected (Not Detect); Parainfluenza Virus 1 Not Detected (Not Detect); Parainfluenza Virus 2 Not Detected (Not Detect); Parainfluenza Virus 3 Not Detected (Not Detect); Parainfluenza Virus 4 Not Detected (Not Detect); Respiratory Syncytial Virus Not Detected (Not Detect)
[2016-09-05] MEDS: Ipratropium/Albuterol Neb 3 ML IH SCH ×6 (00:04→20:01)
[2016-09-05] MEDS: Piperacillin/Tazobactam 3.375 GM in D5% in Water (Mini-Bag+) 100 ML IVPB SCH ×4 (00:06→23:50)
[2016-09-05] MEDS: methylPREDNISolone 125 MG/2 ML VIAL IVP SCH ×4 (00:06→23:49)
[2016-09-05] MEDS: Vancomycin 750 MG in D5% in Water 250 ML IVPB SCH ×2 (04:05→17:08)
[2016-09-05] MEDS: *HR* OxyCODONE/APAP 10/325 TABLET PO PRN ×4 (04:09→23:50)
[2016-09-05 04:54] LABS: Basophils % 0.2 %; Hematocrit 36.1 % (37.5-50.1); Immature Granulocytes % 1.9 % (0-4); Lymphocytes # 0.4 K/mcL (0.6-4.6); Lymphocytes % 2.2 %; Mean Corpuscular HGB Conc 34.3 g/dL (31.6-35.5); Mean Corpuscular Hemoglobin 30.7 pg (28.0-33.3); Mean Corpuscular Volume 89.4 fL (83.0-100.0); Mean Platelet Volume 9.6 fL (9.4-12.4); Monocytes # 0.5 K/mcL (0.0-1.3); Monocytes % 2.9 %; Platelet Count 196 K/mcL (140-400); Red Blood Count 4.04 M/mcL (4.19-5.50); Red Cell Distribution Width 14.3 % (11.5-14.5); Segmented Neutrophils % 92.8 %
[2016-09-05 04:55] LABS: Hemoglobin 12.4 g/dL (12.9-16.9); Neutrophils # 15.9 K/mcL (1.6-8.9)
[2016-09-05 05:06] LABS: BUN/Creatinine Ratio 15 (6-26); Blood Urea Nitrogen 11 mg/dL (8-26); Calcium 8.9 mg/dL (8.6-10.8); Carbon Dioxide 25 mEq/L (19-29); Chloride 97 mEq/L (98-109); Glucose 225 mg/dL (70-99); Osmolality,Calculated 276 (280-300); Potassium 3.8 mEq/L (3.5-4.5); Sodium 130 mEq/L (136-145); eGFR For African Americans > 60 (> 60); eGFR For Non-African Americans > 60 (> 60)
[2016-09-05] MEDS ORDERED: *HR* Enoxaparin 30 MG/0.3 ML SYRINGE SQ SCH (06:00)
[2016-09-05 06:12] LABS: Platelet Estimate Normal (Normal)
[2016-09-05] MEDS: Budesonide/Formoterol 160/4.5 MDI IH SCH ×2 (07:46→20:01)
[2016-09-05] MEDS ORDERED: 0.9 % Sodium Chloride 1,000 ML IVC ONE (08:36)
[2016-09-05] MEDS: amLODIPine 5 MG TABLET PO SCH (09:19)
[2016-09-05] MEDS: Gabapentin 400 MG CAPSULE PO SCH ×3 (09:19→20:54)
[2016-09-05] MEDS: NON-FORMULARY MEDICATION 1 EACH EACH (Roflumilast [Daliresp] 500 MCG) PO SCH (09:20)
--- NOTE | 2016-09-05 11:58 | Infectious Disease Progress No ---
Date of Encounter: 09/05/16 Time of Encounter: 11:53 - Assessment and Plan (1) Sepsis Current Visit: Yes Status: Acute Severe sepsis: The patient had three SIRS criteria plus hypotension that responded to IV fluids. qSOFA score 2. Likely secondary to PNA. Improved. WBc elevated today, but likely secondary to steroids. Continues to have tachycardia, but tachypnea improved. Blood cultures drawn in the ED are pending x 2 sets. Qualifiers: Sepsis type: sepsis due to unspecified organism Qualified Code(s): A41.9 - Sepsis, unspecified organism (2) Pneumonia Current Visit: Yes Status: Acute Community-acquired PNA Location: Right lung. CT of the chest completed in the ED showed consolidation and ground-glass opacities in the right upper and right middle lobe and extensively throughout the right lower lobe with more confluent airspace disease and air bronchograms consistent with multifocal infection. Causative organism unclear. Sputum culture sent yesterday shows NURTF. Repeat if the patient is able to provide an adequate specimen. Continue Zosyn 3.375 grams IV Q8H. This will provide adequate coverage for both CAP and in the even the cavitary lung lesion is caused by a bacterial infection. Continue Vancomycin IV. Pharmacy to dose. Goal trough approximately 15. Duration of treatment depends on the clinical picture. Monitor renal function and for drug toxicity and dose-adjust antibiotics. Qualifiers: Pneumonia type: due to unspecified organism Laterality: right Lung location: lower lobe of lung Qualified Code(s): J18.1 - Lobar pneumonia, unspecified organism (3) Cavitary lesion of lung Current Visit: Yes Status: Acute Location: Right lung apex. CT of the chest shows 10.6cm x 8.8cm cavitary lesion within the right apex concerning for postinfectious origin such as tuberculosis. Etiology not entirely clear. We need to consider infectious (bacterial, TB, NTM , fungal) vs. noninfectious etiologies (malignancy, autoimmune, etc.) CTA of the chest ruled out a PE as a potential cause. PPD placed to the right forearm 09/04/16. Check Quantiferon.--> pending. Continue airborne isolation. Sputum culture sent and came back NURTF. Requested lab run AFB on this specimen as well. Fungal serologies ordered, but not collected. Discussed with lab. States will have manager care management collect specimen now. Recommend pulmonology consult as well. [facility] Antibiotic recommendations as above. (4) Acute exacerbation of chronic obstructive airways disease Current Visit: Yes Status: Acute Likely secondary to PNA. Continue supportive care with O2, nebulizers, and steroids. Continue antibiotics as above. Further management per the primary team. (5) Hypoxia Current Visit: Yes Status: Acute Secondary to PNA and AECOPD. Continue O2 to keep SpO2 >89%. Management per the primary team. (6) Acute and chronic respiratory failure with hypoxia Current Visit: Yes Status: Acute (7) Pulmonary nodule Current Visit: Yes Status: Acute CTA of the chest shows scattered bilateral calcified pulmonary nodules consistent with remote granulomatous disease. Etiology unclear, but the patient states he has been following with the [facility] for this and was told it was "stable." Unable to tell me the cause of the pulmonary nodule. Request records from the [facility]. Recommend pulmonology consult. - Subjective Interval history: Patient seen and examined. No acute events noted overnight. Patient states he feels better today. Denies fevers or chills. Denies chest pain except with deep inspiration or cough. States he still has shortness of breath, but it is better today and his cough is less productive. Denies nausea, vomiting, or diarrhea. States he ate breakfast this morning without a problem. Denies abdominal pain and states his appetite is good. Complains of chronic pain in his neck and back , otherwise denies pain. Infect Dis PN-Objective Data - Labs CBC & Chem 7: 09/05/16 04:43 09/05/16 04:43 Labs: Laboratory Results - last 24 hr 09/04/16 09/04/16 09/04/16 12:11 14:00 14:10 WBC RBC Hgb Hct MCV MCH MCHC RDW Plt Count MPV Immature Gran % Seg Neutrophils % Lymphocytes % Monocytes % Eosinophils % Basophils % Neutrophils # Lymphocytes # Monocytes # Eosinophils # Basophils # Platelet Estimate Sodium Potassium Chloride Carbon Dioxide BUN Creatinine Est GFR ( Amer) Est GFR (Non-Af Amer) BUN/Creatinine Ratio Glucose Calculated Osmolality Lactic Acid 2.1 2.6 H Calcium Urine Color Yellow Urine Clarity Clear Urine pH 6.0 Ur Specific [place] 1.030 H Urine Protein Negative Urine Glucose (UA) Normal Urine Ketones 15 H Urine Blood Negative Urine Nitrite Negative Urine Bilirubin Negative Urine Urobilinogen Normal Ur Leukocyte Esterase Negative Chlamy pneumoniae PCR Adenovirus (PCR) B. pertussis DNA (PCR) Coronavirus OC43 (PCR) Coronavirus HKU1 (PCR) Coronavirus 229E (PCR) Coronavirus NL63 (PCR) Human Metapneumovirus Influenza A (H1) PCR Influ A (H1N1/09) PCR Influenza A (H3) PCR Influenza A Untype (PCR) Influenza Type B (PCR) M.pneumoniae DNA (PCR) Parainfluenza 1 (PCR) Parainfluenza 2 (PCR) Parainfluenza 3 (PCR) Parainfluenza 4 (PCR) RSV (PCR) Entero/Rhino (PCR) 09/04/16 09/05/16 09/05/16 16:50 04:43 04:43 WBC 17.1 H D RBC 4.04 L Hgb 12.4 L D Hct 36.1 L MCV 89.4 MCH 30.7 MCHC 34.3 RDW 14.3 Plt Count 196 MPV 9.6 Immature Gran % 1.9 Seg Neutrophils % 92.8 Lymphocytes % 2.2 Monocytes % 2.9 Eosinophils % 0.0 Basophils % 0.2 Neutrophils # 15.9 H Lymphocytes # 0.4 L Monocytes # 0.5 Eosinophils # 0.0 Basophils # 0.0 Platelet Estimate Normal Sodium 130 L Potassium 3.8 Chloride 97 L Carbon Dioxide 25 BUN 11 Creatinine 0.72 Est GFR ( Amer) > 60 Est GFR (Non-Af Amer) > 60 BUN/Creatinine Ratio 15 Glucose 225 H Calculated Osmolality 276 L Lactic Acid Calcium 8.9 Urine Color Urine Clarity Urine pH Ur Specific [place] Urine Protein Urine Glucose (UA) Urine Ketones Urine Blood Urine Nitrite Urine Bilirubin Urine Urobilinogen Ur Leukocyte Esterase Chlamy pneumoniae PCR Not Detected Adenovirus (PCR) Not Detected B. pertussis DNA (PCR) Not Detected Coronavirus OC43 (PCR) Not Detected Coronavirus HKU1 (PCR) Not Detected Coronavirus 229E (PCR) Not Detected Coronavirus NL63 (PCR) Not Detected Human Metapneumovirus Not Detected Influenza A (H1) PCR Not Detected Influ A (H1N1/09) PCR Not Detected Influenza A (H3) PCR Not Detected Influenza A Untype (PCR) Not Detected Influenza Type B (PCR) Not Detected M.pneumoniae DNA (PCR) Not Detected Parainfluenza 1 (PCR) Not Detected Parainfluenza 2 (PCR) Not Detected Parainfluenza 3 (PCR) Not Detected Parainfluenza 4 (PCR) Not Detected RSV (PCR) Not Detected Entero/Rhino (PCR) Not Detected Cultures: Cultures 09/04/16 14:20 Sputum Culture - Preliminary Sputum Serology 09/04/16 09/04/16 Range/Units 16:50 14:00 Urine Color Yellow (Yellow) Urine Clarity Clear (Clear) Urine pH 6.0 (5.0-8.0) pH Units Ur Specific [place] 1.030 H (1.010-1.025) Urine Protein Negative (Neg-Trace) mg/dL Urine Glucose (UA) Normal (Normal) mg/dL Urine Ketones 15 H (Negative) mg/dL Urine Blood Negative (Negative) Urine Nitrite Negative (Negative) Urine Bilirubin Negative (Negative) Urine Urobilinogen Normal (Normal) mg/dL Ur Leukocyte Esterase Negative (Negative) Chlamy pneumoniae PCR Not Detected (Not Detect) Adenovirus (PCR) Not Detected (Not Detect) B. pertussis DNA (PCR) Not Detected (Not Detect) Coronavirus OC43 (PCR) Not Detected (Not Detect) Coronavirus HKU1 (PCR) Not Detected (Not Detect) Coronavirus 229E (PCR) Not Detected (Not Detect) Coronavirus NL63 (PCR) Not Detected (Not Detect) Human Metapneumovirus Not Detected (Not Detect) Influenza A (H1) PCR Not Detected (Not Detect) Influ A (H1N1/09) PCR Not Detected (Not Detect) Influenza A (H3) PCR Not Detected (Not Detect) Influenza A Untype (PCR) Not Detected (Not Detect) Influenza Type B (PCR) Not Detected (Not Detect) M.pneumoniae DNA (PCR) Not Detected (Not Detect) Parainfluenza 1 (PCR) Not Detected (Not Detect) Parainfluenza 2 (PCR) Not Detected (Not Detect) Parainfluenza 3 (PCR) Not Detected (Not Detect) Parainfluenza 4 (PCR) Not Detected (Not Detect) RSV (PCR) Not Detected (Not Detect) Entero/Rhino (PCR) Not Detected (Not Detect) Exam - Constitutional Vitals: Temp Pulse Resp BP Pulse Ox 97.9 F 105 16 127/76 100 09/05/16 11:41 09/05/16 10:48 09/05/16 11:50 09/05/16 10:48 04/27/17 11:50 General appearance: average body habitus, cooperative, no acute distress - Head Head exam: Present: atraumatic, normal inspection, normocephalic - Eye Eye exam: Present: EOMI, normal appearance, PERRL Pupils: Present: normal accommodation - ENT ENT exam: Present: mucous membranes moist - Neck Neck exam: Present: normal inspection - Respiratory Respiratory exam: Present: decreased breath sounds (Right UL). Absent: rales, respiratory distress, rhonchi, wheezes, tachypnea - Cardiovascular Cardiovascular exam: Present: +S1, +S2, tachycardia. Absent: irregular rhythm - GI/Abdominal GI/Abdominal exam: Present: normal bowel sounds, soft. Absent: distended, tenderness - Extremities Exam Extremities exam: Present: normal inspection. Absent: joint swelling, pedal edema, tenderness - Neurological Exam Neurological exam: Present: alert, oriented X3, no focal deficits - Psychiatric Psychiatric exam: Present: normal affect, normal mood - Skin Skin exam: Present: dry, intact, normal color, warm Consult Discharge Plan - Plan [facility] [Primary Care Provider[facility] -
--- NOTE | 2016-09-05 13:51 | Internal Med Progress Note ---
Date of Encounter: 09/05/16 Time of Encounter: 13:51 - Assessment and plan (1) Sepsis Current Visit: Yes Status: Acute Assessment and plan: Secondary to pneumonia New leukocytosis Follow cultures ID on board, appreciate input Qualifiers: Sepsis type: sepsis due to unspecified organism Qualified Code(s): A41.9 - Sepsis, unspecified organism (2) Acute exacerbation of chronic obstructive airways disease Current Visit: Yes Status: Acute Assessment and plan: Continue current meds (3) Pneumonia Current Visit: Yes Status: Acute Assessment and plan: Continue current meds Qualifiers: Pneumonia type: due to unspecified organism Laterality: right Lung location: lower lobe of lung Qualified Code(s): J18.1 - Lobar pneumonia, unspecified organism (4) Cavitary lesion of lung Current Visit: Yes Status: Acute Assessment and plan: Follow sputum culture, AFB stain, PPD (5) Acute and chronic respiratory failure with hypoxia Current Visit: Yes Status: Acute Assessment and plan: Continue O2 supplements Keep in tele (6) Hypertension Current Visit: Yes Status: Chronic Assessment and plan: Controlled, continue home meds Qualifiers: Hypertension type: essential hypertension Qualified Code(s): I10 - Essential (primary) hypertension (7) Pulmonary nodule Current Visit: Yes Status: Chronic Assessment and plan: Follow up with Pulmonary outpatient - Subjective Interval history: 65 Y/O M being admitted and managed for sepsis secondary to pneumonia He also has a cavitary lesion and TB is being ruled out has no new complains - Constitutional Vitals: Temp Pulse Resp BP Pulse Ox 97.9 F 112 16 123/74 97 09/05/16 11:41 09/05/16 12:29 09/05/16 12:29 09/05/16 12:29 09/05/16 12:29 General appearance: Present: cooperative, A&O X 3, no acute distress - Head Head exam: Present: atraumatic, normocephalic - Eye Eye exam: Present: PERRL, conjuntiva pink, sclera anicteric Pupils: Present: PERRL - Neck Neck exam general surgery: Present: supple, trachea midline. Absent: lymphadenopathy - Respiratory Respiratory exam: Present: decreased breath sounds (bilaterally, possibly from epmhysema). Absent: accessory muscle use, rales, rhonchi, wheezes - Cardiovascular Cardiovascular exam: Present: RRR, +S1, +S2. Absent: diastolic murmur, gallop, rubs, systolic murmur - GI/Abdominal GI/Abdominal exam: Present: normal bowel sounds, soft, no peritoneal signs. Absent: distended, tenderness - Extremities Exam Extremities exam: Present: warm, radial pulses palpable and symetrical. Absent : calf tenderness, cyanotic, pedal edema - Neurological Exam Neurological exam: Present: alert, CN II-XII intact, oriented X3, no focal deficits. Absent: pronater drift, facial droop, speech deficit - Skin Skin exam: Present: dry, intact Internal Medicine: Result - Labs CBC & Chem 7: 09/05/16 04:43 09/05/16 04:43 Labs: Short CBC 09/05/16 Range/Units 04:43 WBC 17.1 H D (4.3-11.1) K/mcL Hgb 12.4 L D (12.9-16.9) g/dL Hct 36.1 L (37.5-50.1) % Plt Count 196 (140-400) K/mcL Neutrophils # 15.9 H (1.6-8.9) K/mcL BMP 09/05/16 04:43 Sodium 130 L Potassium 3.8 Chloride 97 L Carbon Dioxide 25 BUN 11 Creatinine 0.72 Glucose 225 H Calcium 8.9 Urine 09/04/16 Range/Units 14:00 Urine Color Yellow (Yellow) Urine Clarity Clear (Clear) Urine pH 6.0 (5.0-8.0) pH Units Ur Specific [place] 1.030 H (1.010-1.025) Urine Protein Negative (Neg-Trace) mg/dL Urine Glucose (UA) Normal (Normal) mg/dL - ABG Interpretation ABG results: ABG ABG pH 7.38 pH Units (7.32-7.45) 09/04/16 07:58 ABG pCO2 37 mmHg (35-45) 09/04/16 07:58 ABG pO2 85 mmHg (85-104) 09/04/16 07:58 ABG O2 Saturation 96 % (95-98) 09/04/16 07:58 PT/INR, D-dimer PT 9.5 Seconds (9.4-12.1) 09/04/16 06:17 Consult Discharge Plan - Plan [facility]: [facility] [Primary Care Provider[facility] -
[2016-09-06] MEDS: Ipratropium/Albuterol Neb 3 ML IH SCH ×7 (00:07→23:35)
[2016-09-06 04:09] LABS: Hematocrit 32.4 % (37.5-50.1); Mean Corpuscular Hemoglobin 30.5 pg (28.0-33.3); Mean Corpuscular Volume 89.8 fL (83.0-100.0); Mean Platelet Volume 9.7 fL (9.4-12.4); Platelet Count 193 K/mcL (140-400); Red Blood Count 3.61 M/mcL (4.19-5.50); Red Cell Distribution Width 14.2 % (11.5-14.5)
[2016-09-06 04:26] LABS: BUN/Creatinine Ratio 21 (6-26); Blood Urea Nitrogen 14 mg/dL (8-26); Calcium 9.2 mg/dL (8.6-10.8); Carbon Dioxide 24 mEq/L (19-29); Chloride 96 mEq/L (98-109); Glucose 218 mg/dL (70-99); Osmolality,Calculated 275 (280-300); Potassium 3.1 mEq/L (3.5-4.5); Sodium 129 mEq/L (136-145); eGFR For African Americans > 60 (> 60); eGFR For Non-African Americans > 60 (> 60)
[2016-09-06] MEDS ORDERED: Vancomycin 1,250 MG in D5% in Water 250 ML IVPB ONE (05:00)
[2016-09-06 05:16] LABS: Lymphocytes # 0.7 K/mcL (0.6-4.6); Monocytes # 0.7 K/mcL (0.0-1.3); Neutrophils # 15.6 K/mcL (1.6-8.9)
[2016-09-06 05:17] LABS: Platelet Estimate Normal (Normal)
[2016-09-06] MEDS: *HR* Enoxaparin 40 MG/0.4 ML SYRINGE SQ SCH (06:25)
[2016-09-06] MEDS: methylPREDNISolone 125 MG/2 ML VIAL IVP SCH (07:58)
[2016-09-06] MEDS: Gabapentin 400 MG CAPSULE PO SCH ×3 (07:59→20:39)
[2016-09-06] MEDS: Piperacillin/Tazobactam 3.375 GM in D5% in Water (Mini-Bag+) 100 ML IVPB SCH ×2 (08:02→20:34)
[2016-09-06] MEDS: *HR* OxyCODONE/APAP 10/325 TABLET PO PRN ×2 (08:02→20:40)
[2016-09-06] MEDS: amLODIPine 5 MG TABLET PO SCH (08:02)
[2016-09-06] MEDS: NON-FORMULARY MEDICATION 1 EACH EACH (Roflumilast [Daliresp] 500 MCG) PO SCH (08:03)
--- NOTE | 2016-09-06 09:36 | Infectious Disease Progress No ---
Date of Encounter: 09/06/16 Time of Encounter: 09:34 - Assessment and Plan (1) Sepsis Current Visit: Yes Status: Acute Severe sepsis: The patient had three SIRS criteria plus hypotension that responded to IV fluids. qSOFA score 2. Likely secondary to PNA. Improved. WBC elevated today, but likely secondary to steroids, minimally improved from yesterday. Continues to have tachycardia, but tachypnea improved. Blood cultures drawn in the ED are NGTD x 2 sets. Qualifiers: Sepsis type: sepsis due to unspecified organism Qualified Code(s): A41.9 - Sepsis, unspecified organism (2) Pneumonia Current Visit: Yes Status: Acute Community-acquired PNA Location: Right lung. CT of the chest completed in the ED showed consolidation and ground-glass opacities in the right upper and right middle lobe and extensively throughout the right lower lobe with more confluent airspace disease and air bronchograms consistent with multifocal infection. Causative organism unclear. Sputum culture sent yesterday shows NURTF. Repeat if the patient is able to provide an adequate specimen. Continue Zosyn 3.375 grams IV Q8H. This will provide adequate coverage for both CAP and in the even the cavitary lung lesion is caused by a bacterial infection. Continue Vancomycin IV. Pharmacy to dose. Goal trough approximately 15. Duration of treatment depends on the clinical picture. Monitor renal function and for drug toxicity and dose-adjust antibiotics. Qualifiers: Pneumonia type: due to unspecified organism Laterality: right Lung location: lower lobe of lung Qualified Code(s): J18.1 - Lobar pneumonia, unspecified organism (3) Cavitary lesion of lung Current Visit: Yes Status: Acute Location: Right lung apex. CT of the chest shows 10.6cm x 8.8cm cavitary lesion within the right apex concerning for postinfectious origin such as tuberculosis. Etiology not entirely clear. We need to consider infectious (bacterial, TB, NTM , fungal) vs. noninfectious etiologies (malignancy, autoimmune, etc.) CTA of the chest ruled out a PE as a potential cause. PPD placed to the right forearm 09/04/16. If negative, okay to discontinue Airborne isolation. Check Quantiferon.--> pending. Fungitell, Aspergillosis galactomannan Ag, Blastomyces Ab, and Histoplasmosis antigens are pending. Cryptococcal Ag negative. Continue airborne isolation until PPD can be read at 48 hours. Sputum culture sent and came back [facility]. Sputum sent for AFB x 3 --> one negative, two pending.. Pulmonology consulted. Plan for bronchoscopy later today. Request records from the [facility]--> awaiting receipt. Antibiotic recommendations as above. (4) Acute exacerbation of chronic obstructive airways disease Current Visit: Yes Status: Acute Likely secondary to PNA. Continue supportive care with O2, nebulizers, and steroids. Continue antibiotics as above. Further management per the primary team. (5) Hypoxia Current Visit: Yes Status: Acute Secondary to PNA and AECOPD. Continue O2 to keep SpO2 >89%. Management per the primary team. (6) Acute and chronic respiratory failure with hypoxia Current Visit: Yes Status: Acute (7) Pulmonary nodule Current Visit: Yes Status: Chronic CTA of the chest shows scattered bilateral calcified pulmonary nodules consistent with remote granulomatous disease. Etiology unclear, but the patient states he has been following with the MD for this and was told it was "stable." Unable to tell me the cause of the pulmonary nodule. Request records from the [facility]. Pulmonology consulted and following. - Subjective Interval history: Patient seen and examined. No acute events noted overnight. Patient states he feels better today. Denies fevers or chills. Denies chest pain except with deep inspiration or cough and states it is now on the left side of his ribs. States he still has shortness of breath, but it is better today and is almost back to baseline. Unsure if he gets short of breath with exertion since he has only been up to the [facility]. States his cough is less productive. Denies nausea, vomiting , or diarrhea. States he ate breakfast this morning without a problem. Denies abdominal pain and states his appetite is good. Complains of chronic pain in his neck and back, otherwise denies pain. Infect Dis PN-Objective Data - Labs CBC & Chem 7: 09/06/16 03:49 09/06/16 03:49 Labs: Laboratory Results - last 24 hr 09/06/16 09/06/16 09/06/16 03:49 03:49 03:49 WBC 16.9 H RBC 3.61 L Hgb 11.0 L Hct 32.4 L MCV 89.8 MCH 30.5 MCHC 34.0 RDW 14.2 Plt Count 193 MPV 9.7 Seg Neutrophils % 92.0 Lymphocytes % 4.0 Monocytes % 4.0 Neutrophils # 15.6 H Lymphocytes # 0.7 Monocytes # 0.7 Platelet Estimate Normal Sodium 129 L Potassium 3.1 L Chloride 96 L Carbon Dioxide 24 BUN 14 Creatinine 0.68 L Est GFR ( Amer) > 60 Est GFR (Non-Af Amer) > 60 BUN/Creatinine Ratio 21 Glucose 218 H Calculated Osmolality 275 L Calcium 9.2 Vancomycin Trough 6.1 L Cultures: Cultures 09/04/16 14:20 Sputum Culture - Preliminary Sputum 09/04/16 14:20 Acid Fast Stain - Final Sputum 09/05/16 12:16 Cryptococcal Antigen - Final Serum Serology 09/04/16 09/04/16 Range/Units 16:50 14:00 Urine Color Yellow (Yellow) Urine Clarity Clear (Clear) Urine pH 6.0 (5.0-8.0) pH Units Ur Specific [place] 1.030 H (1.010-1.025) Urine Protein Negative (Neg-Trace) mg/dL Urine Glucose (UA) Normal (Normal) mg/dL Urine Ketones 15 H (Negative) mg/dL Urine Blood Negative (Negative) Urine Nitrite Negative (Negative) Urine Bilirubin Negative (Negative) Urine Urobilinogen Normal (Normal) mg/dL Ur Leukocyte Esterase Negative (Negative) Chlamy pneumoniae PCR Not Detected (Not Detect) Adenovirus (PCR) Not Detected (Not Detect) B. pertussis DNA (PCR) Not Detected (Not Detect) Coronavirus OC43 (PCR) Not Detected (Not Detect) Coronavirus HKU1 (PCR) Not Detected (Not Detect) Coronavirus 229E (PCR) Not Detected (Not Detect) Coronavirus NL63 (PCR) Not Detected (Not Detect) Human Metapneumovirus Not Detected (Not Detect) Influenza A (H1) PCR Not Detected (Not Detect) Influ A (H1N1/09) PCR Not Detected (Not Detect) Influenza A (H3) PCR Not Detected (Not Detect) Influenza A Untype (PCR) Not Detected (Not Detect) Influenza Type B (PCR) Not Detected (Not Detect) M.pneumoniae DNA (PCR) Not Detected (Not Detect) Parainfluenza 1 (PCR) Not Detected (Not Detect) Parainfluenza 2 (PCR) Not Detected (Not Detect) Parainfluenza 3 (PCR) Not Detected (Not Detect) Parainfluenza 4 (PCR) Not Detected (Not Detect) RSV (PCR) Not Detected (Not Detect) Entero/Rhino (PCR) Not Detected (Not Detect) Exam - Constitutional Vitals: Temp Pulse Resp BP Pulse Ox 97.7 F 101 18 135/90 95 09/06/16 08:25 09/06/16 03:50 09/06/16 03:50 09/06/16 03:50 09/06/16 03:50 General appearance: average body habitus, cooperative, no acute distress - Head Head exam: Present: atraumatic, normal inspection, normocephalic - Eye Eye exam: Present: EOMI, normal appearance, PERRL Pupils: Present: normal accommodation - ENT ENT exam: Present: mucous membranes moist - Neck Neck exam: Present: normal inspection - Respiratory Respiratory exam: Present: CTAB, wheezes (Coarse, expiratory, RUL). Absent: rales, respiratory distress, rhonchi - Cardiovascular Cardiovascular exam: Present: +S1, +S2, tachycardia. Absent: irregular rhythm - GI/Abdominal GI/Abdominal exam: Present: normal bowel sounds, soft. Absent: distended, tenderness - Extremities Exam Extremities exam: Present: normal inspection. Absent: joint swelling, pedal edema, tenderness - Neurological Exam Neurological exam: Present: alert, oriented X3, no focal deficits - Psychiatric Psychiatric exam: Present: normal affect, normal mood - Skin Skin exam: Present: dry, intact, normal color, warm Consult Discharge Plan - Plan [facility]errals: [facility] [Primary Care Provider] -
[2016-09-06] MEDS: Budesonide/Formoterol 160/4.5 MDI IH SCH ×2 (10:42→19:58)
[2016-09-06] MEDS ORDERED: D5% in Water 1,000 ML IVC PRN (12:29)
[2016-09-06] MEDS ORDERED: *HR* Dextrose 50 % in Water (Syg) 50 ML SYRINGE IVP PRN (12:29)
[2016-09-06] MEDS ORDERED: Dextrose Gel 15 GM PO PRN ×2 (12:29)
--- NOTE | 2016-09-06 13:33 | Event Note ---
Date of Encounter: 09/06/16 Time of Encounter: 13:28 Patient examined, chart and all data reviewed as well as imaging studies. This 65-year-old male with an extensive smoking history and obvious severe COPD with emphysematous clinical features was admitted to the hospital with progressive breathlessness and cough. He denied concurrent fevers chills night sweats hemoptysis or pleuritic chest pain. He has no obvious risk factors for mycobacterial disease other than underlying structural lung disease (potential risk factor for nontuberculous mycobacteriosis). Given radiographic abnormality suggesting a possible cavitary process within the right chest, the patient was placed in isolation and pulmonary consultation requested. Admits to incarceration within the half-way system approximately 15 perhaps 20 years ago but he cannot recall the specifics regarding that situation. Does not work around homeless individuals nor does he visit presence, he does not utilize IV drugs he admits to sex with multiple partners ( and currently lives at home) and she does not have obvious risk factors to suggest HIV disease. Active smoker at least [id number] intensity. I note asbestos exposure through work. Examination male appears older than his stated age 65 years cachectic awake alert no distress vitals reviewed. Head normocephalic eyes pupils were normal neck no adenopathy milder venous prominence. Chest exam increase in AP diameter mild use of accessory respiratory muscles at rest. Auscultation reveals severely diminished breath sound intensity prolonged expiratory phase throughout all lung zones. Cardiac exam regular rate. Abdominal exam soft nontender bowel sounds are noted. Extremities free of cyanosis edema clubbing osteoarthritic changes noted affecting the hands. Pulses are intact of the lower extremities. There is no obvious neurologic deficit motor sensory. Normal mentation. Laboratory data imaging studies reviewed. Impressions #1. Emphysematous pneumonia mimicking cavitary lung disease #2 extensive emphysematous variety COPD with a bleb and bolus formation #3 active smoker number for other medical problems outlined in the formal consultation. Plan patient is a isolation can be discontinued at this time given the lack of risk factors for MTB and lack of AFB identified from at least one sputum specimen. All evaluation is pending including quantifier on study. Other to provide a more definitive evaluation regarding possible mycobacterial infectious etiology for question will cavitary lung disease, bronchoscopy with bronchoalveolar lavage will be performed later today. Reviewed the situation with the patient and he has agreed to proceed as outlined. Continue bronchodilator therapy and steroids as well as antibiotics (vancomycin be discontinued if cultures negative and MRSA probe negative). E [place] [phone]
--- NOTE | 2016-09-06 16:07 | Pulmonology Consult Note ---
Date of Encounter: 09/06/16 Time of Encounter: 08:00 Assessment and Plan (1) Acute and chronic respiratory failure with hypoxia Current Visit: Yes Status: Acute 1. Acute and chronic respiratory failure with hypoxia Blood culture (-) x2 Sputum acid fast (-) x3 Sputum culture (-) Serum cryptococcus (-) MRSA nasal swab pending - Vancomycin day 3; discontinue if MRSA swab returns (-) - Zosyn day 3 - Prednisone 60mg Q8hr - Symbicort - Duoneb - Supplemental O2 PRN 2. Pneumonia Community acquired - Plan as above 3. Cavitary lesion Likely emphysematous with bleb and bolus formation Sputum acid fast (-) x3 - Plan as above 4. Tobacco dependence 50 pk-yr history - Pt counseled and encouraged to quit smoking. Other: DVT: Lovenox PUD: regular diet + home dose omeprazole (2) Pneumonia Current Visit: Yes Status: Acute Qualifiers: Pneumonia type: due to unspecified organism Laterality: right Lung location: lower lobe of lung Qualified Code(s): J18.1 - Lobar pneumonia, unspecified organism (3) Cavitary lesion of lung Current Visit: Yes Status: Acute (4) Tobacco dependence Current Visit: Yes Status: Acute History of Present Illness Consult date: 09/06/16 Requesting physician: Zenon Torrez Reason for consult: dyspnea Chief complaint: YURI History of present illness: Mr. Teran, a 65yo male, presented to the ER 2 days ago for YURI subsequently admitted to hospitalist service placed in ICU. CT chest revealed cavitary lesions for which TB could not be immediately ruled out. Patient placed in negative pressure room with precautions. Patient had progressive dyspnea with cough. No fever, chills, hemoptysis, or chest pain. Hx HTN, COPD. Patient states this occurrence of dyspnea feels identical to previous occurrences. PMH: HTN, tobacco dependence, COPD - basline O2 is 3L at night and PRN during day + symbicort, home nebs. 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 Past Med Surg Social Fam HX - Past Medical History Medical history: COPD, hyperlipidemia Psychiatric history: no psych history - Past Surgical History Surgical History: orthopedic, other (Right hip IM nailing, right hip total arthroplasty) - Social History Smoking Status: Former smoker Packs per day: 1 Smokeless Tobacco Status: No (quit smoking September 2014) Alcohol use: rarely Drug use: none Medications and Allergies Albuterol Neb [AccuNeb] 1 aerosol IH QID PRN 07/29/15 [History] Amlodipine Besylate [Amlodipine Besylate] 10 mg PO DAILY 07/29/15 [History] Budesonide/Formoterol 160/4.5 [Symbicort 160/4.5] 2 puff IH BID 07/29/15 [ History] Gabapentin [Gralise] 1,200 mg PO TID 07/29/15 [History] GuaiFENesin ER [Mucinex] 600 mg PO BID PRN 07/29/15 [History] Losartan Potassium [Cozaar] 100 mg PO DAILY 07/29/15 [History] Omeprazole [PriLOSEC] 20 mg PO DAILY 07/29/15 [History] Oxycodone HCl/Acetaminophen [Percocet 10-325 mg Tablet] 1 tab PO TID PRN [History] Tiotropium [Spiriva] 1 cap IH DAILY 07/29/15 [History] Albuterol Sulfate [Albuterol Inhaler] 2 puff IH Q6HR PRN 09/04/16 [History] Roflumilast [Daliresp] 500 mcg PO DAILY 09/04/16 [History] Tamsulosin [Flomax] 0.4 mg PO DAILY 09/04/16 [History] Allergies No Known Allergies Allergy (Verified 11/26/15 01:05) All Systems: A 10-system review of systems was performed and is negative for pertinent findings except as documented above in the HPI. - Constitutional Constitutional: no chills, no excessive sweating, no fever(s), no headache(s), no night sweats - EENT Nose, mouth and throat: no dizziness, no headache(s), no hoarseness, no nasal congestion - Cardiovascular Cardiovascular: dyspnea, no chest pain, no diaphoresis, no irregular heart rhythm, no leg edema, no lightheadedness, no pedal edema - Respiratory Respiratory: cough, dyspnea, no hemoptysis, no wheezing, no pain on inspirtation , no excessive phlegm production - Gastrointestinal Gastrointestinal: no abdominal pain, no diarrhea, no hematemesis, no hematochezia, no loose stools, no melena, no nausea, no vomiting Physical Examination Vital Signs: Vital Signs, Last 4 Hours Temp Pulse Resp BP Pulse Ox 09/06/16 15:19 98.2 F 09/06/16 15:00 98 22 134/83 95 General appearance: no acute distress, alert Eyes: nonicteric Neck: supple Effort: mildly labored Inspection: other (barrel chested) Auscultation: bilateral: diminished breath sounds (prolonged expiratory phase), wheezes Cardiovascular: regular rate and rhythm Gastrointestinal: normoactive bowel sounds, soft, non-tender, non-distended Integumentary: normal Extremities: no cyanosis, no edema, pink and warm, pulses normal, no ischemia or petechiae, other (fingernail clubbing) Musculoskeletal: no deformities normal mental status, pupils equal and round mood appropriate, affect normal Results - Laboratory Findings CBC and BMP: 09/06/16 03:49 09/06/16 03:49 ABG ABG pH 7.38 pH Units (7.32-7.45) 09/04/16 07:58 ABG pCO2 37 mmHg (35-45) 09/04/16 07:58 ABG pO2 85 mmHg (85-104) 09/04/16 07:58 ABG O2 Saturation 96 % (95-98) 09/04/16 07:58 PT/INR, D-dimer PT 9.5 Seconds (9.4-12.1) 09/04/16 06:17 Abnormal lab findings: Abnormal lab results WBC 16.9 K/mcL (4.3-11.1) H 09/06/16 03:49 RBC 3.61 M/mcL (4.19-5.50) L 09/06/16 03:49 Hgb 11.0 g/dL (12.9-16.9) L 09/06/16 03:49 Hct 32.4 % (37.5-50.1) L 09/06/16 03:49 Neutrophils # 15.6 K/mcL (1.6-8.9) H 09/06/16 03:49 ABG Base Excess -2.7 mEq/L (-2.0 to 3.0) L 09/04/16 07:58 Sodium 129 mEq/L (136-145) L 09/06/16 03:49 Potassium 3.1 mEq/L (3.5-4.5) L 09/06/16 03:49 Chloride 96 mEq/L (98-109) L 09/06/16 03:49 Creatinine 0.68 mg/dL (0.72-1.25) L 09/06/16 03:49 Glucose 218 mg/dL (70-99) H 09/06/16 03:49 POC Glucose 93 (58-89) H 09/04/16 11:05 Calculated Osmolality 275 (280-300) L 09/06/16 03:49 Lactic Acid 2.6 mmol/L (0.5-2.2) H 09/04/16 14:10 Serum Total Protein 8.4 g/dL (6.0-8.3) H 09/04/16 06:17 Globulin 4.0 g/dL (2.4-3.5) H 09/04/16 06:17 Ur Specific [place] 1.030 (1.010-1.025) H 09/04/16 14:00 Urine Ketones 15 mg/dL (Negative) H 09/04/16 14:00 Vancomycin Trough 6.1 mcg/mL (10-20) L 09/06/16 03:49 - Microbiology Findings Microbiology Findings: Microbiology, Last 48 Hours 09/06/16 00:30 Acid Fast Stain - Final Sputum 09/05/16 13:55 Acid Fast Stain - Final Sputum 09/04/16 14:20 Sputum Culture - Final Sputum 09/04/16 14:20 Acid Fast Stain - Final Sputum 09/05/16 12:16 Cryptococcal Antigen - Final Serum - Diagnostic Findings Chest x-ray: report reviewed, image reviewed CT scan - chest: report reviewed, image reviewed - Clinical Findings Intake & Output: Intake & Output 09/05/16 09/06/16 09/06/16 23:59 07:59 15:59 Intake Total 750 / 750 700 / 700 350 / 350 Output Total 450 / 450 875 / 875 1075 / 1075 Balance 300 / 300 -175 / -175 -725 / -725 Weight 54 kg Consult Discharge Plan - Plan [facility]: [facility] [Primary Care Provider] -
[2016-09-06] MEDS ORDERED: *HR* FentaNYL (PF) 100 MCG/2 ML VIAL IVP ONE (16:28)
[2016-09-06] MEDS ORDERED: *HR* Midazolam HCl 2 MG/2 ML VIAL IVP ONE (16:28)
--- NOTE | 2016-09-06 16:39 | Procedure Note ---
Date of procedure: 09/06/16 Pre-op diagnosis: cavitary lung disease Post-op diagnosis: same Procedure: Informed consent was obtained from the patient. He received 3 mg of Versed and 100 g fentanyl IV for sedation. 2% lidocaine 5 mL was nebulized for airway anesthetization. Bronchoscope passed through the right nares. Larynx unremarkable. Inspection of the airways revealed diffuse mucoid impaction as well as inflammatory changes throughout no obvious endobronchial lesions concerning for malignancy. Bronchoscope was wedged in the right upper lobe lavage was performed. This was sent for routine analysis including AFB fungus. Cytology was also ordered. No untoward events.
[2016-09-06] MEDS ORDERED: *HR* Midazolam HCl 5 MG/5 ML VIAL IVP ONE (16:49)
[2016-09-06] MEDS ORDERED: Vancomycin 1,000 MG in D5% in Water 250 ML IVPB SCH (17:00)
[2016-09-06] MEDS: Insulin LISPRO 300 UNITS/3 ML VIAL SQ SCH (20:34)
[2016-09-06] MEDS: predniSONE 20 MG TABLET PO SCH (20:40)
[2016-09-07] MEDS: Piperacillin/Tazobactam 3.375 GM in D5% in Water (Mini-Bag+) 100 ML IVPB SCH ×2 (00:17→08:03)
[2016-09-07] MEDS: Insulin LISPRO 300 UNITS/3 ML VIAL SQ SCH ×4 (00:25→16:35)
[2016-09-07 03:09] LABS: Hematocrit 32.1 % (37.5-50.1); Hemoglobin 11.2 g/dL (12.9-16.9); Mean Corpuscular HGB Conc 34.9 g/dL (31.6-35.5); Mean Corpuscular Hemoglobin 30.9 pg (28.0-33.3); Mean Corpuscular Volume 88.7 fL (83.0-100.0); Mean Platelet Volume 9.9 fL (9.4-12.4); Platelet Count 202 K/mcL (140-400); Red Blood Count 3.62 M/mcL (4.19-5.50); Red Cell Distribution Width 14.2 % (11.5-14.5)
[2016-09-07 03:23] LABS: BUN/Creatinine Ratio 22 (6-26); Blood Urea Nitrogen 13 mg/dL (8-26); Calcium 9.4 mg/dL (8.6-10.8); Carbon Dioxide 31 mEq/L (19-29); Chloride 98 mEq/L (98-109); Glucose 126 mg/dL (70-99); Osmolality,Calculated 286 (280-300); Potassium 2.6 mEq/L (3.5-4.5); eGFR For African Americans > 60 (> 60); eGFR For Non-African Americans > 60 (> 60)
[2016-09-07 03:24] LABS: Sodium 137 mEq/L (136-145)
[2016-09-07] MEDS: Ipratropium/Albuterol Neb 3 ML IH SCH ×6 (03:59→23:14)
[2016-09-07] MEDS: *HR* OxyCODONE/APAP 10/325 TABLET PO PRN ×3 (04:40→23:21)
[2016-09-07] MEDS: *HR* Enoxaparin 40 MG/0.4 ML SYRINGE SQ SCH (06:17)
[2016-09-07] MEDS: Gabapentin 400 MG CAPSULE PO SCH ×3 (07:59→20:11)
[2016-09-07] MEDS: predniSONE 20 MG TABLET PO SCH ×2 (08:00→17:47)
[2016-09-07] MEDS: amLODIPine 5 MG TABLET PO SCH (08:02)
[2016-09-07] MEDS: Budesonide/Formoterol 160/4.5 MDI IH SCH ×2 (08:45→19:35)
[2016-09-07] MEDS: NON-FORMULARY MEDICATION 1 EACH EACH (Roflumilast [Daliresp] 500 MCG) PO SCH (11:15)
[2016-09-07] MEDS ORDERED: Chloraseptic Spray 177 ML BOTTLE MM PRN (11:54)
--- NOTE | 2016-09-07 13:19 | Pulmonology Progress Note ---
Date of Encounter: 09/07/16 Time of Encounter: 11:05 Assessment and Plan (1) Abnormal chest CT Current Visit: Yes Status: Acute The radiographic findings bespeak of emphysema, bullous disease and more than likely daniel- emphysematous infection producing a suggestion of cavitary lung disease. To date, there is no evidence to incriminate unusual infectious pathogens including mycobacteriosis. I think it would be reasonable for this patient to receive a total of 2 weeks of antibiotic therapy. I would recommend follow-up repeat imaging of the chest in approximately 6 weeks. Code(s): R93.8 - Abnormal findings on diagnostic imaging of other specified body structures SNOMED Code(s): 721883828 (2) Acute exacerbation of chronic obstructive airways disease Current Visit: Yes Status: Acute Continue bronchodilator therapy, course of systemic steroids (7 days total) and supplemental oxygen as needed to maintain saturation values greater than equal to 90%. Currently, the patient is free of tobacco use. Please call should you have any questions [facility] [phone] Subjective Principal diagnosis: Abnormal chest CT scan, COPD Interval history: Since the last evaluation, the patient notes reasonable stability of his respiratory status. He continues to note mild cough and chest congestion and expectoration of mucoid secretions. Objective PUL Vital signs: Last Vital Signs Temp 97.6 F 09/07/16 11:28 Pulse 95 09/07/16 11:28 Resp 17 09/07/16 11:28 BP 129/76 09/07/16 11:28 Pulse Ox 92 09/07/16 11:28 General appearance: no acute distress Eyes: nonicteric ENT: oropharynx moist Neck: no JVD Auscultation: bilateral: diminished breath sounds Cardiovascular: regular rate and rhythm Gastrointestinal: normoactive bowel sounds, non-distended Extremities: no cyanosis Musculoskeletal: no deformities normal mental status, non-focal exam Results - Laboratory Findings CBC and BMP: 09/07/16 02:49 09/07/16 02:49 ABG ABG pH 7.38 pH Units (7.32-7.45) 09/04/16 07:58 ABG pCO2 37 mmHg (35-45) 09/04/16 07:58 ABG pO2 85 mmHg (85-104) 09/04/16 07:58 ABG O2 Saturation 96 % (95-98) 09/04/16 07:58 PT/INR, D-dimer PT 9.5 Seconds (9.4-12.1) 09/04/16 06:17 Abnormal lab findings: Abnormal lab results WBC 14.1 K/mcL (4.3-11.1) H 09/07/16 02:49 RBC 3.62 M/mcL (4.19-5.50) L 09/07/16 02:49 Hgb 11.2 g/dL (12.9-16.9) L 09/07/16 02:49 Hct 32.1 % (37.5-50.1) L 09/07/16 02:49 Neutrophils # 15.6 K/mcL (1.6-8.9) H 09/06/16 03:49 ABG Base Excess -2.7 mEq/L (-2.0 to 3.0) L 09/04/16 07:58 Potassium 2.6 mEq/L (3.5-4.5) L 09/07/16 02:49 Carbon Dioxide 31 mEq/L (19-29) H 09/07/16 02:49 Creatinine 0.60 mg/dL (0.72-1.25) L 09/07/16 02:49 Glucose 126 mg/dL (70-99) H 09/07/16 02:49 POC Glucose 93 (58-89) H 09/04/16 11:05 Lactic Acid 2.6 mmol/L (0.5-2.2) H 09/04/16 14:10 Serum Total Protein 8.4 g/dL (6.0-8.3) H 09/04/16 06:17 Globulin 4.0 g/dL (2.4-3.5) H 09/04/16 06:17 Ur Specific [place] 1.030 (1.010-1.025) H 09/04/16 14:00 Urine Ketones 15 mg/dL (Negative) H 09/04/16 14:00 Vancomycin Trough 6.1 mcg/mL (10-20) L 09/06/16 03:49 B-(1,3)-D-Glucan Intrp POSITIVE (Negative) A 09/05/16 12:16 - Microbiology Findings Microbiology Findings: Microbiology, Last 48 Hours 09/06/16 16:13 Bronchoalveolar Lavage Culture - Preliminary Right Upper Lobe Lung No growth. 09/06/16 00:30 Acid Fast Stain - Final Sputum 09/05/16 13:55 Acid Fast Stain - Final Sputum 09/04/16 14:20 Sputum Culture - Final Sputum 09/04/16 14:20 Acid Fast Stain - Final Sputum 09/05/16 12:16 Cryptococcal Antigen - Final Serum - Clinical Findings Intake & Output: Intake & Output 09/06/16 09/07/16 09/07/16 23:59 07:59 15:59 Intake Total 100 / 100 680 / 680 Output Total 450 / 450 1200 / 1200 Balance -450 / -450 -1100 / -1100 680 / 680 Weight 54.3 kg 52.1 kg Consult Discharge Plan - Plan [facility]errals: [facility] [Primary Care Provider] -
--- NOTE | 2016-09-07 14:14 | Internal Med Progress Note ---
Date of Encounter: 09/07/16 Time of Encounter: 09:00 - Assessment and plan (1) Acute exacerbation of chronic obstructive airways disease Current Visit: Yes Status: Acute Assessment and plan: Continue current meds with antibiotic, systemic steroid, bronchodilator. Pulmonology consult appreciated (2) Cavitary lesion of lung Current Visit: Yes Status: Acute Assessment and plan: Follow sputum culture, AFB stain, PPD. Had bronchoscope yesterday, BALF sent, culture negative. - We will continue antibiotic treatment for 2 weeks, and repeat imaging in 6 weeks per pulmonology. (3) Acute and chronic respiratory failure with hypoxia Current Visit: Yes Status: Acute Assessment and plan: Continue O2 supplements Keep in tele (4) Hypertension Current Visit: Yes Status: Chronic Assessment and plan: Controlled, continue home meds Qualifiers: Hypertension type: essential hypertension Qualified Code(s): I10 - Essential (primary) hypertension (5) DVT prophylaxis Current Visit: Yes Status: Acute Assessment and plan: Lovenox subcutaneously. - Time Spent With Patient 25 - 35 minutes - Subjective Interval history: Patient is a 65-year-old male admitted for COPD exacerbation. He also was found lung cavity on chest CAT scan. Past medical history is significant for COPD and hyperlipidemia. Saw and examined the patient today. He is awake alert, oriented 3. Shortness of breath has improved. Vital signs stable. In mild acute respiratory distress. Oxygen saturation 92% on 4 L oxygen nasal cannula. Pulmonology consult appreciated. Patient had a bronchoscope yesterday, BALF sent, negative for AFB. Will continue antibiotic and steroid treatment. Closely monitor patient. - Constitutional Vitals: Temp Pulse Resp BP Pulse Ox 97.6 F 95 17 129/76 92 09/07/16 11:28 09/07/16 11:28 09/07/16 11:28 09/07/16 11:28 09/07/16 11:28 General appearance: Present: cooperative, A&O X 3, no acute distress - Head Head exam: Present: atraumatic, normocephalic - Eye Eye exam: Present: PERRL, conjuntiva pink, sclera anicteric Pupils: Present: PERRL - Neck Neck exam general surgery: Present: supple, trachea midline. Absent: lymphadenopathy - Respiratory Respiratory exam: Present: CTAB. Absent: accessory muscle use, rales, rhonchi, wheezes - Cardiovascular Cardiovascular exam: Present: RRR, +S1, +S2. Absent: diastolic murmur, gallop, rubs, systolic murmur - GI/Abdominal GI/Abdominal exam: Present: normal bowel sounds, soft, no peritoneal signs. Absent: distended, tenderness - Extremities Exam Extremities exam: Present: warm, radial pulses palpable and symetrical. Absent : calf tenderness, cyanotic, pedal edema - Neurological Exam Neurological exam: Present: CN II-XII intact, oriented X3, no focal deficits. Absent: pronater drift, facial droop, speech deficit - Skin Skin exam: Present: dry, intact Internal Medicine: Result - Labs CBC & Chem 7: 09/07/16 02:49 09/07/16 02:49 Labs: Short CBC 09/07/16 Range/Units 02:49 WBC 14.1 H (4.3-11.1) K/mcL Hgb 11.2 L (12.9-16.9) g/dL Hct 32.1 L (37.5-50.1) % Plt Count 202 (140-400) K/mcL BMP 09/07/16 02:49 Sodium 137 D Potassium 2.6 L Chloride 98 Carbon Dioxide 31 H BUN 13 Creatinine 0.60 L Glucose 126 H Calcium 9.4 - ABG Interpretation ABG results: ABG ABG pH 7.38 pH Units (7.32-7.45) 09/04/16 07:58 ABG pCO2 37 mmHg (35-45) 09/04/16 07:58 ABG pO2 85 mmHg (85-104) 09/04/16 07:58 ABG O2 Saturation 96 % (95-98) 09/04/16 07:58 PT/INR, D-dimer PT 9.5 Seconds (9.4-12.1) 09/04/16 06:17 Consult Discharge Plan - Plan [facility]errals: [facility] [Primary Care Provider] -
[2016-09-07] MEDS ORDERED: predniSONE 20 MG TABLET PO SCH (17:00)
[2016-09-08] MEDS: Ipratropium/Albuterol Neb 3 ML IH SCH ×3 (04:42→11:43)
[2016-09-08 06:09] LABS: Basophils % 0.1 %; Hematocrit 35.5 % (37.5-50.1); Hemoglobin 12.2 g/dL (12.9-16.9); Immature Granulocytes % 1.6 % (0-4); Lymphocytes # 0.4 K/mcL (0.6-4.6); Lymphocytes % 5.6 %; Mean Corpuscular HGB Conc 34.4 g/dL (31.6-35.5); Mean Corpuscular Hemoglobin 30.8 pg (28.0-33.3); Mean Corpuscular Volume 89.6 fL (83.0-100.0); Mean Platelet Volume 9.7 fL (9.4-12.4); Monocytes # 0.4 K/mcL (0.0-1.3); Monocytes % 5.7 %; Neutrophils # 6.4 K/mcL (1.6-8.9); Platelet Count 215 K/mcL (140-400); Red Blood Count 3.96 M/mcL (4.19-5.50); Red Cell Distribution Width 14.3 % (11.5-14.5)
[2016-09-08] MEDS: *HR* Enoxaparin 40 MG/0.4 ML SYRINGE SQ SCH (06:14)
[2016-09-08] MEDS: *HR* OxyCODONE/APAP 10/325 TABLET PO PRN (06:15)
[2016-09-08 06:22] LABS: BUN/Creatinine Ratio 26 (6-26); Blood Urea Nitrogen 17 mg/dL (8-26); Calcium 9.4 mg/dL (8.6-10.8); Carbon Dioxide 34 mEq/L (19-29); Chloride 94 mEq/L (98-109); Glucose 143 mg/dL (70-99); Potassium 3.5 mEq/L (3.5-4.5); eGFR For African Americans > 60 (> 60); eGFR For Non-African Americans > 60 (> 60)
[2016-09-08 06:52] LABS: Osmolality,Calculated 292 (280-300); Sodium 139 mEq/L (136-145)
[2016-09-08] MEDS: Insulin LISPRO 300 UNITS/3 ML VIAL SQ SCH ×2 (08:23→12:10)
[2016-09-08] MEDS: NON-FORMULARY MEDICATION 1 EACH EACH (Roflumilast [Daliresp] 500 MCG) PO SCH (08:24)
[2016-09-08] MEDS: amLODIPine 5 MG TABLET PO SCH (08:29)
[2016-09-08] MEDS: predniSONE 20 MG TABLET PO SCH ×2 (08:29→12:17)
[2016-09-08] MEDS: Gabapentin 400 MG CAPSULE PO SCH (08:29)
--- NOTE | 2016-09-08 11:07 | Discharge Summary ---
Date of Encounter: 09/08/16 Time of Encounter: 10:00 - Discharge Diagnosis (1) Acute exacerbation of chronic obstructive airways disease Priority: Primary Status: Acute (2) Cavitary lesion of lung Priority: Primary Status: Acute (3) Acute and chronic respiratory failure with hypoxia Priority: Primary Status: Acute (4) Hypertension Priority: Secondary Status: Chronic Qualifiers: Hypertension type: essential hypertension Qualified Code(s): I10 - Essential (primary) hypertension (5) DVT prophylaxis Priority: Secondary Status: Acute - Discharge Medications Prescriptions: Amoxicillin/Clavulanate [Augmentin] 875 mg PO BIDWM #30 tablet PredniSONE 60 mg PO TIDWM #54 tablet Home Medications: Albuterol Neb [AccuNeb] 1 aerosol IH QID PRN 07/29/15 [History] Amlodipine Besylate [Amlodipine Besylate] 10 mg PO DAILY 07/29/15 [History] Budesonide/Formoterol 160/4.5 [Symbicort 160/4.5] 2 puff IH BID 07/29/15 [ History] Gabapentin [Gralise] 1,200 mg PO TID 07/29/15 [History] GuaiFENesin ER [Mucinex] 600 mg PO BID PRN 07/29/15 [History] Losartan Potassium [Cozaar] 100 mg PO DAILY 07/29/15 [History] Omeprazole [PriLOSEC] 20 mg PO DAILY 07/29/15 [History] Oxycodone HCl/Acetaminophen [Percocet 10-325 mg Tablet] 1 tab PO TID PRN [History] Tiotropium [Spiriva] 1 cap IH DAILY 07/29/15 [History] Albuterol Sulfate [Albuterol Inhaler] 2 puff IH Q6HR PRN 09/04/16 [History] Roflumilast [Daliresp] 500 mcg PO DAILY 09/04/16 [History] Tamsulosin [Flomax] 0.4 mg PO DAILY 09/04/16 [History] Amoxicillin/Clavulanate [Augmentin] 875 mg PO BIDWM #30 tablet 09/08/16 [Rx] PredniSONE 60 mg PO TIDWM #54 tablet 09/08/16 [Rx] Allergies/Adverse Reactions: Allergies No Known Allergies Allergy (Verified 11/26/15 01:05) - Notes to Outpatient Provider 1. Continue antibiotic for 2 weeks. Continue steroid prednisone 60mg 3 times a day for 6 more days to finish a seven-day course. 2. Repeat chest imaging in 6 weeks. Date of admission: 09/04/16 10:03 Primary care physician: PCP FLORA Consults: 09/04/16 10:36 Consult to Infectious Diseases [CONS] Routine Consulting Provider: Infectious Disease [place] Reason for Consult: ATB recommendations for multifocal PNA. Chest CTA with Cavitary lesion to right apex concerning for TB Time Notified: 10:39 Call Completed: Yes 09/04/16 11:24 Consult to [facility]eter [CONS] Stat Reason for SW Consult: pt. wants to transfer to [facility] 09/05/16 18:32 Consult to Respiratory Therapy [CONS] Routine Reason for Consult: flutter valve with treatments Call Completed: Yes 09/06/16 07:25 Consult to Pulmonology [CONS] Routine Consulting Provider: Pulm Crit Care [facility] Sleep [place] Reason for Consult: COPD exacerbation Call Completed: No Discharging clinician: Zenon Torrez Anticipated date of discharge: 09/08/16 - Patient Status Disposition: Home, Self-Care Condition: Fair Overall status at discharge: patient is back to baseline - Discharge Instructions [facility] With: [facility] [Primary Care Provider] - - Diet and Activity Activity: increase activity as tolerated Diet: regular diet Interval History: Mr. Teran is a 65 year old male with PMH COPD, HTN and BPH who presented to [facility] on 09/04/2016 with complaints of shortness of breath. He was found to be hypoxic and was placed on BiPAP in ED. He was admitted for IV ATB and ID consultation. Information obtained form chart review and patient report. Patient says he woke at 0200 on morning of admission and was acutely SOB. Says "when I get like this it just comes on real quick". Says he mowed his yard for 4 hours yesterday and he thinks that set it off. Has been treated for PNA and COPD exacerbation this year at [facility]. On my exam he is still c/ o SOB but says better from when he first came to ER. Breathing tx's and oxygen has helped, activity worsens. No chest pain. Reports productive cough at times. No recent weight loss, fever, chills or night sweats. Hospital course: Mr. Teran is a 65 year old male admitted for COPD exacerbation. Patient was treated with antibiotic, steroid, and bronchodilator. Patient was found lung cavity on CAT scan, pulmonology consult was called and the patient had the bronchoscope. BALF sent, AFB stain negative. BALF culture shows yeast, I discussed that with the grain receiver Dr. Cardenas, this doesn't change the management. Patient will continue antibiotics for 2 weeks, continue steroid for totally 7 days, and repeat chest imaging in 6 weeks, per pulmonology recommendation. Patient will discharge home today and follow-up with [facility] pulmonology. I saw and examined the patient today, he is a awake alert, oriented 3. Shortness of breath has improved to his baseline. Vitals are stable. Oxygen saturation 97% on 3 L nasal cannula. Patient had home oxygen already. We will discharge patient home with antibiotic and steroid at the dose and the duration recommended by pulmonology. Patient will follow-up the pulmonology as outpatient. - Time Spent with Patient Total time spent providing and/or coordinating discharge services: Greater than 30 minutes - Constitutional Vitals: Temp Pulse Resp BP Pulse Ox 98.0 F 90 18 153/87 97 09/08/16 06:57 09/08/16 06:57 09/08/16 06:57 09/08/16 06:57 09/08/16 08:35 General appearance: Present: cooperative, A&O X 3, no acute distress - Head Head exam: Present: atraumatic, normocephalic - Eye Eye exam: Present: PERRL, conjuntiva pink, sclera anicteric Pupils: Present: PERRL - Neck Neck exam general surgery: Present: supple, trachea midline. Absent: lymphadenopathy - Respiratory Respiratory exam: Present: CTAB. Absent: accessory muscle use, rales, rhonchi, wheezes - Cardiovascular Cardiovascular exam: Present: RRR, +S1, +S2. Absent: diastolic murmur, gallop, rubs, systolic murmur - GI/Abdominal GI/Abdominal exam: Present: normal bowel sounds, soft, no peritoneal signs. Absent: distended, tenderness - Extremities Exam Extremities exam: Present: warm, radial pulses palpable and symetrical. Absent : calf tenderness, cyanotic, pedal edema - Neurological Exam Neurological exam: Present: CN II-XII intact, oriented X3, no focal deficits. Absent: pronater drift, facial droop, speech deficit - Skin Skin exam: Present: dry, intact
[2016-09-08 11:36] VITALS: BP 137/82
[2016-09-08] MEDS: Budesonide/Formoterol 160/4.5 MDI IH SCH (11:43)
[2016-09-08] MEDS ORDERED: Aminoglycoside Consult 1 EACH MC ONE (13:27)
[2016-09-08 16:14] LABS: QuantiFERON Mitogen minus NIL 0.03 IU/mL; QuantiFERON-TB minus NIL 0.01 IU/mL (0.00-0.34)
[2016-09-09 08:22] LABS: QuantiFERON NIL 0.02 IU/mL; QuantiFERON-TB Gold In-Tube INDETERMINATE (Negative)
[2016-09-09 08:23] LABS: Blastomyces dermatitidis Ab ID NONE DETECTED (None Detected)
== END 2016-09-08 13:28 | disposition home or self-care (01) | DRG 871 ==
LOC: EMEROO 05:41 → ICNU 10:03 → SUATTDRO 10:03 → ICNU 10:57 → 2NNU 09-06 19:34 → 3BNU 09-08 03:17
PROVIDERS: ADMIT Internal Medicine; ATTEND Internal Medicine